=== PATIENT | female | born 1955 | race Caucasian/White ===

== ENCOUNTER 2016-12-06 09:16 | Outpatient (CLI) | payer OTHER ==
[2016-12-06 14:12] LABS: BASOPHILS % (AUTO) 0.6 %; EOSINOPHILS # (AUTO) 0.4 10^3/uL (0.0-0.7); EOSINOPHILS % (AUTO) 5.8 %; HCT - HEMATOCRIT 38.1 % (37.0-47.0); HGB - HEMOGLOBIN 13.1 g/dL (12.0-16.0); LYMPHOCYTES # (AUTO) 1.8 10^3/uL (1.5-3.5); LYMPHOCYTES % (AUTO) 28.5 %; MEAN CORPUSCULAR HEMOGLOBIN 31.2 pg (27.0-31.0); MEAN CORPUSCULAR HGB CONC 34.3 g/dL (32.0-36.0); MEAN CORPUSCULAR VOLUME 90.9 fL (81.0-99.0); MEAN PLATELET VOLUME 8.6 fL (7.9-10.8); MONOCYTES # (AUTO) 0.4 10^3/uL (0.0-1.0); MONOCYTES % (AUTO) 6.2 %; NEUTROPHILS # (AUTO) 3.7 10^3/uL (1.5-6.6); NEUTROPHILS % (AUTO) 58.9 %; NUCLEATED RED BLOOD CELLS AUTO 0.1 /100WBC; RED CELL DISTRIBUTION WIDTH 13.5 % (12.0-15.0); UNCORRECTED WHITE BLOOD COUNT 6.3 x10^3/uL; WHITE BLOOD COUNT 6.3 x10^3/uL (4.8-10.8)
[2016-12-06 14:36] LABS: ALBUMIN/GLOBULIN RATIO 1.4 (1.0-2.2); BILIRUBIN,TOTAL 0.7 mg/dL (0.2-1.0); BUN - BLOOD UREA NITROGEN 24 mg/dL (6-20); CALCIUM 9.2 mg/dL (8.5-10.3); CARBON DIOXIDE - CO2 28 mmol/L (21-32); CHLORIDE 104 mmol/L (101-111); CHOL/HDL RATIO 4.9 (<4.4); CHOLESTEROL 211 mg/dL; CREATININE 0.8 mg/dL (0.4-1.0); GFR - MDRD 72 (>89); GLUCOSE 134 mg/dL (70-100); HDL CHOLESTEROL 43 mg/dL; LDL/HDL RATIO 2.1 (<4.4); POTASSIUM 3.7 mmol/L (3.5-5.0); SODIUM 140 mmol/L (135-145); TOTAL PROTEIN 6.6 g/dL (6.7-8.2); TRIGLYCERIDES 393 mg/dL; VLDL CHOLESTEROL 79 mg/dL
[2016-12-06 14:40] LABS: HEMOGLOBIN A1C 0.63 g/dL
== END 2016-12-06 09:17 | disposition home or self-care (01) ==
LOC: LAB.WCP 09:16
PROVIDERS: ATTEND Physician Assistant Medical
DX: E11.9 Type 2 diabetes mellitus without complications (principal); J30.9 Allergic rhinitis, unspecified
CPT/HCPCS: 36415; 80050; 80061; 83036

== ENCOUNTER 2017-01-23 10:02 | Outpatient (CLI) | payer OTHER ==
--- NOTE | 2017-01-24 13:24 | Mammography Report ---
DIGITAL SCREENING MAMMOGRAM: 01/23/2017 CLINICAL INDICATION: A 61-year-old for screening. COMPARISON: 09/2014, 05/2013, 08/2011, 06/2010, 06/2008 TECHNIQUE: Routine CC and MLO projections were obtained of the breasts. FINDINGS: The breasts again demonstrate scattered fibroglandular densities bilaterally. Coarse and punctate, typically benign calcifications are present. No suspicious masses, clustered microcalcific ations, or regions of architectural distortion are identified. IMPRESSION: BENIGN FINDINGS. RECOMMENDATION: Routine annual screening unless otherwise clinically indicated. BIRADS CATEGORY 2 - BENIGN FINDINGS. STANDARD QUALIFYING STATEMENTS 1. This examination was reviewed with the aid of Computer-Aided Detection (CAD). 2. A negative or benign imaging report should not delay biopsy if clinically suspicious findings are present. Consider surgical consultation if warranted. More than 5% of cancers are not identified by i maging. 3. Dense breasts may obscure an underlying neoplasm. JOB #: [id number] EXT JOB #:[id number]
== END 2017-01-23 10:03 | disposition home or self-care (01) ==
LOC: DI 10:02
PROVIDERS: ATTEND Physician Assistant Medical
DX: Z12.31 Encounter for screening mammogram for malignant neoplasm of breast (principal)
CPT/HCPCS: 77067

== ENCOUNTER 2017-11-12 08:00 | Outpatient (CLI) | payer OTHER ==
[2017-11-13 13:44] LABS: H. PYLORIS ANTIGEN STL NEGATIVE (Negative)
== END 2017-11-12 23:59 | disposition home or self-care (01) ==
LOC: LAB.WCP 08:00
PROVIDERS: ATTEND Physician Assistant Medical
DX: R19.7 Diarrhea, unspecified (principal)
CPT/HCPCS: 81599; 83630; 87045; 87046; 87177; 87209; 87329; 87338; 87493

== ENCOUNTER 2017-11-18 08:00 | Outpatient (CLI) | payer OTHER | END 2017-11-18 08:01 | disposition home or self-care (01) | LOC: LAB.WCP 08:00 | PROVIDERS: ATTEND Family Medicine | DX: N39.0 Urinary tract infection, site not specified (principal) | CPT/HCPCS: 87086 ==

== ENCOUNTER 2017-11-26 08:00 | Outpatient (CLI) | payer OTHER | END 2017-11-26 08:01 | disposition home or self-care (01) | LOC: LAB.R 08:00 | PROVIDERS: ATTEND Family Medicine | DX: R19.7 Diarrhea, unspecified (principal) | CPT/HCPCS: 87493 ==

== ENCOUNTER 2018-02-27 13:27 | Outpatient (CLI) | payer MEDICARE, OTHER ==
--- NOTE | 2018-03-02 13:38 | Mammography Report ---
Procedure Date: 02/27/2018 Accession Number: [id number] / [id number] Procedure: MGN - Screening Mammo Dig Bilat CPT Code: FULL RESULT: EXAM: Screening Mammo Dig Bilat DATE: 02/27/2018 1:44 PM CLINICAL HISTORY: 63-year-old female presents for screening mammogram. TECHNIQUE: Bilateral CC and MLO views were obtained. COMPARISON: 01/23/2017, 09/20/2014, 06/09/2013, 08/29/2011. FINDINGS: The breasts demonstrate scattered fibroglandular densities bilaterally. There are typically benign coarse calcifications in the right breast. No suspicious masses, clustered microcalcifications, or regions of architectural distortion are identified. IMPRESSION: Benign findings RECOMMENDATION: Routine annual screening unless otherwise clinically indicated. BIRADS CATEGORY 2: Benign findings STANDARD QUALIFYING STATEMENTS: 1. This examination was reviewed with the aid of Computer-Aided Detection (CAD). 2. A negative or benign imaging report should not delay biopsy if clinically suspicious findings are present. Consider surgical consultation if warrented. More than 5% of cancers are not identified by imaging. 3. Dense breasts may obscure an underlying neoplasm.
== END 2018-02-27 13:28 | disposition home or self-care (01) ==
LOC: DI.N 13:27
PROVIDERS: ATTEND Radiology Diagnostic Radiology
DX: Z12.31 Encounter for screening mammogram for malignant neoplasm of breast (principal)
CPT/HCPCS: 77067

== ENCOUNTER 2018-03-02 10:28 | Outpatient (CLI) | payer MEDICARE, OTHER ==
--- NOTE | 2018-03-02 14:26 | DEXA Report ---
Procedure Date: 03/02/2018 Accession Number: [id number] / [id number] Procedure: DEX - Dexa Spine and/or Hip CPT Code: FULL RESULT: EXAM: Dexa Spine and/or Hip DATE: 03/02/2018 10:52 AM CLINICAL HISTORY: BONE DISEASE TECHNIQUE: Dual energy x-ray absorptiometry (DXA) was performed on a [employer] System. Regions measured are the AP Spine, femoral neck, and if needed forearm. COMPARISON: None. In accordance with the International Society for Clinical Densitometry (ISCD) guidelines, data from previous exams may be reanalyzed using current recommendations and techniques. This is done to allow a more accurate basis for comparison with the current study. FINDINGS: The data for the lumbar spine is as follows: BMD (g/cm/cm) T-SCORE Z-SCORE REGION L1 1.145 0.1 1.0 L2 1.136 -0.5 0.4 L3 1.129 -0.6 0.3 L4 1.137 -0.5 0.4 TOTAL 1.137 -0.4 0.5 NOTE: All evaluable vertebrae are used for classification The data for the hip is as follows: BMD (g/cm/cm) T-SCORE Z-SCORE REGION Neck 0.831 -1.5 -0.5 TOTAL 0.930 -0.6 0.1 NOTE: The femoral neck or total proximal femur, whichever is lowest, is used for classification. IMPRESSION: THE WHO CLASSIFICATION BASED ON THE INTERNATIONAL REFERENCE STANDARD IS OSTEOPENIA. THE FRACTURE RISK IS INCREASED. RECOMMENDATION: Patients with diagnosis of osteoporosis or osteopenia should have regular bone mineral density assessment. For those eligible for Medicare, routine testing is allowed once every 2 years. Testing frequency can be increased for patients who have rapidly progressing disease or for those who are receiving medical therapy to restore bone mass. COMMENT: World Health Organization (WHO) definitions for osteoporosis and osteopenia: NORMAL BMD: T-score at -1.0 or higher, fracture risk is low OSTEOPENIA BMD: T-score between -1.0 and -2.5, fracture risk is increased. OSTEOPOROSIS BMD: T-score at -2.5 or lower, fracture risk is high. National Osteoporosis Foundation recommends: 1. Obtain adequate dietary calcium (at least 1200 mg per day) and vitamin D (400-800 international units per day). 2. Participate, as appropriate, in regular weightbearing and muscle-strengthening exercise. 3. Avoid tobacco use and reduce alcohol and caffeine intake. 4. For more detailed information see the website at www.NOF.org.
== END 2018-03-02 10:29 | disposition home or self-care (01) ==
LOC: DI 10:28
PROVIDERS: ATTEND Physician Assistant Medical
DX: M85.89 Other specified disorders of bone density and structure, multiple sites (principal)
CPT/HCPCS: 77080

== ENCOUNTER 2018-03-12 09:30 | Outpatient (CLI) | payer MEDICARE, OTHER ==
[2018-03-12 12:24] LABS: BASOPHILS # (AUTO) 0.1 10^3/uL (0.0-0.1); EOSINOPHILS # (AUTO) 0.3 10^3/uL (0.0-0.7); EOSINOPHILS % (AUTO) 5.5 %; HGB - HEMOGLOBIN 14.3 g/dL (12.0-16.0); LYMPHOCYTES # (AUTO) 1.7 10^3/uL (1.5-3.5); LYMPHOCYTES % (AUTO) 27.1 %; MEAN CORPUSCULAR HEMOGLOBIN 31.4 pg (27.0-31.0); MEAN CORPUSCULAR VOLUME 92.3 fL (81.0-99.0); MEAN PLATELET VOLUME 8.3 fL (7.9-10.8); MONOCYTES # (AUTO) 0.4 10^3/uL (0.0-1.0); MONOCYTES % (AUTO) 6.1 %; NEUTROPHILS # (AUTO) 3.8 10^3/uL (1.5-6.6); NEUTROPHILS % (AUTO) 60.3 %; PLT - PLATELET COUNT 208 10^3/uL (130-450); RED BLOOD COUNT 4.55 10^6/uL (4.20-5.40); RED CELL DISTRIBUTION WIDTH 13.9 % (12.0-15.0); WHITE BLOOD COUNT 6.3 x10^3/uL (4.8-10.8)
[2018-03-12 12:51] LABS: ALBUMIN 3.8 g/dL (3.2-5.5); ALBUMIN/GLOBULIN RATIO 1.1 (1.0-2.2); ALKALINE PHOSPHATASE 67 IU/L (42-121); ALT ALANINE AMINOTRANSFERASE 41 IU/L (10-60); AST ASPARTATE AMINOTRANSFERASE 46 IU/L (10-42); BILIRUBIN,TOTAL 0.8 mg/dL (0.2-1.0); BUN - BLOOD UREA NITROGEN 22 mg/dL (6-20); CALCIUM 9.8 mg/dL (8.5-10.3); CARBON DIOXIDE - CO2 27 mmol/L (21-32); CHLORIDE 101 mmol/L (101-111); CHOL/HDL RATIO 6.2 (<4.4); CHOLESTEROL 272 mg/dL; GFR - MDRD 56 (>89); GLUCOSE 255 mg/dL (70-100); HDL CHOLESTEROL 44 mg/dL; SODIUM 137 mmol/L (135-145); TOTAL PROTEIN 7.3 g/dL (6.7-8.2)
[2018-03-12 13:18] LABS: LDL CHOLESTEROL,DIRECT 110 mg/dL; LDLD/HDL RATIO 2.5 (<4.4)
[2018-03-12 20:42] LABS: HB2 TOTAL 15.2 g/dL; HEMOGLOBIN A1C 1.39 g/dL; HEMOGLOBIN A1C % 10.5 % (4.6-6.2)
== END 2018-03-12 09:31 | disposition home or self-care (01) ==
LOC: LAB.WCP 09:30
PROVIDERS: ATTEND Physician Assistant Medical
DX: Z00.00 Encounter for general adult medical examination without abnormal findings (principal); E11.9 Type 2 diabetes mellitus without complications
CPT/HCPCS: 36415; 80053; 80061; 82043; 83036; 83721; 84443; 85025

== ENCOUNTER 2018-06-09 08:37 | Outpatient (CLI) | payer MEDICARE, OTHER ==
[2018-06-09 14:47] LABS: ALBUMIN 4.2 g/dL (3.2-5.5); ALBUMIN/GLOBULIN RATIO 1.3 (1.0-2.2); ALKALINE PHOSPHATASE 33 IU/L (42-121); ALT ALANINE AMINOTRANSFERASE 21 IU/L (10-60); AST ASPARTATE AMINOTRANSFERASE 25 IU/L (10-42); BILIRUBIN,TOTAL 0.8 mg/dL (0.2-1.0); BUN - BLOOD UREA NITROGEN 30 mg/dL (6-20); CALCIUM 9.4 mg/dL (8.5-10.3); CARBON DIOXIDE - CO2 28 mmol/L (21-32); CHLORIDE 102 mmol/L (101-111); CHOL/HDL RATIO 3.6 (<4.4); CHOLESTEROL 160 mg/dL; CREATININE 1.2 mg/dL (0.4-1.0); GFR - MDRD 45 (>89); GLUCOSE 143 mg/dL (70-100); HDL CHOLESTEROL 44 mg/dL; LDL CHOLESTEROL,CALCULATED 67 mg/dL; LDL/HDL RATIO 1.5 (<4.4); SODIUM 138 mmol/L (135-145); TOTAL PROTEIN 7.4 g/dL (6.7-8.2); VLDL CHOLESTEROL 49 mg/dL
[2018-06-09 15:15] LABS: HEMOGLOBIN A1C 0.7 g/dL; HEMOGLOBIN A1C % 6.4 % (4.6-6.2)
== END 2018-06-09 23:59 | disposition home or self-care (01) ==
LOC: LAB.WCP 08:37
PROVIDERS: ATTEND Physician Assistant Medical
DX: E11.9 Type 2 diabetes mellitus without complications (principal)
CPT/HCPCS: 36415; 80053; 80061; 83036; 83721

== ENCOUNTER 2018-08-04 13:28 | Outpatient (CLI) | payer MEDICARE, OTHER | END 2018-08-04 13:29 | disposition home or self-care (01) | LOC: SC 13:28 | PROVIDERS: ATTEND Internal Medicine Pulmonary Disease | DX: G47.33 Obstructive sleep apnea (adult) (pediatric) (principal) | CPT/HCPCS: 99203; G0463; 99212 ==

== ENCOUNTER 2018-08-13 08:00 | Outpatient (CLI) | payer MEDICARE, OTHER | END 2018-08-13 23:59 | disposition home or self-care (01) | LOC: LAB.R 08:00 | PROVIDERS: ATTEND Nurse Practitioner | DX: R35.0 Frequency of micturition (principal) | CPT/HCPCS: 87086; 87181 ==

== ENCOUNTER 2018-09-14 07:54 | Outpatient (CLI) | payer MEDICARE, OTHER ==
[2018-09-14 12:50] LABS: ALBUMIN 4.1 g/dL (3.2-5.5); ALBUMIN/GLOBULIN RATIO 1.3 (1.0-2.2); ALKALINE PHOSPHATASE 28 IU/L (42-121); ALT ALANINE AMINOTRANSFERASE 21 IU/L (10-60); AST ASPARTATE AMINOTRANSFERASE 27 IU/L (10-42); BILIRUBIN,TOTAL 0.6 mg/dL (0.2-1.0); BUN - BLOOD UREA NITROGEN 27 mg/dL (6-20); CALCIUM 9.1 mg/dL (8.5-10.3); CARBON DIOXIDE - CO2 27 mmol/L (21-32); CHLORIDE 102 mmol/L (101-111); CHOL/HDL RATIO 3.2 (<4.4); CHOLESTEROL 167 mg/dL; GFR - MDRD 56 (>89); GLUCOSE 121 mg/dL (70-100); HDL CHOLESTEROL 53 mg/dL; LDL CHOLESTEROL,CALCULATED 85 mg/dL; LDL/HDL RATIO 1.6 (<4.4); SODIUM 138 mmol/L (135-145); TOTAL PROTEIN 7.3 g/dL (6.7-8.2); VLDL CHOLESTEROL 29 mg/dL
[2018-09-14 13:28] LABS: HEMOGLOBIN A1C 0.59 g/dL; HEMOGLOBIN A1C % 5.7 % (4.6-6.2)
== END 2018-09-14 07:55 ==
LOC: LAB.WCP 07:54
PROVIDERS: ATTEND Physician Assistant Medical
DX: E11.9 Type 2 diabetes mellitus without complications (principal)
CPT/HCPCS: 36415; 80053; 80061; 83036; 83721

== ENCOUNTER 2018-09-15 10:41 | Outpatient (CLI) | payer MEDICARE, OTHER | END 2018-09-15 10:42 | disposition home or self-care (01) | LOC: SC 10:41 | PROVIDERS: ATTEND Nurse Practitioner Family | DX: G47.33 Obstructive sleep apnea (adult) (pediatric) (principal) | CPT/HCPCS: 99214; G0463; 99212 ==

== ENCOUNTER 2018-12-18 08:00 | Outpatient (CLI) | payer MEDICARE, OTHER ==
[2018-12-18 12:49] LABS: HB2 TOTAL 14.8 g/dL; HEMOGLOBIN A1C 0.62 g/dL
[2018-12-18 12:55] LABS: ALBUMIN/GLOBULIN RATIO 1.3 (1.0-2.2); ALKALINE PHOSPHATASE 55 IU/L (42-121); ALT ALANINE AMINOTRANSFERASE 16 IU/L (10-60); AST ASPARTATE AMINOTRANSFERASE 22 IU/L (10-42); BILIRUBIN,TOTAL 0.6 mg/dL (0.2-1.0); BUN - BLOOD UREA NITROGEN 28 mg/dL (6-20); CALCIUM 9.3 mg/dL (8.5-10.3); CARBON DIOXIDE - CO2 27 mmol/L (21-32); CHLORIDE 105 mmol/L (101-111); CHOL/HDL RATIO 5.3 (<4.4); CHOLESTEROL 227 mg/dL; CREATININE 0.9 mg/dL (0.4-1.0); GFR - MDRD 63 (>89); GLUCOSE 126 mg/dL (70-100); HDL CHOLESTEROL 43 mg/dL; LDL CHOLESTEROL,CALCULATED 127 mg/dL; SODIUM 141 mmol/L (135-145); TOTAL PROTEIN 7.2 g/dL (6.7-8.2); VLDL CHOLESTEROL 57 mg/dL
== END 2018-12-18 23:59 | disposition home or self-care (01) ==
LOC: LAB.WCP 08:00
PROVIDERS: ATTEND Physician Assistant Medical
DX: E11.9 Type 2 diabetes mellitus without complications (principal)
CPT/HCPCS: 36415; 80053; 80061; 83036; 83721

== ENCOUNTER 2019-01-28 13:38 | Outpatient (CLI) | payer MEDICARE, OTHER ==
--- NOTE | 2019-01-29 12:11 | XRAY Report ---
Reason: NECK PAIN,CHRONIC Procedure Date: 01/28/2019 Accession Number: [id number] / [id number] Procedure: XR - Cervical Spine Complete CPT Code: FULL RESULT: EXAM: CERVICAL SPINE RADIOGRAPHY EXAM DATE: 01/28/2019 02:18 PM HISTORY: COMMENTS: CHRONIC NECK PAIN PRIORS: NONE. TECHNIQUE: AP, bilateral obliques, lateral and open mouth odontoid 5 view exam plus swimmer's view COMPARISON: None. FINDINGS: Normal alignment. Mild sclerotic appearance at the right lateral mass of C2 may be related to some mild degenerative arthritis at the superior facet. Overlapping bony structure might contribute to this appearance as well. Associated linear lucency is probably related to bony ridge. There is evidence of mild to moderate progressive spondylosis from C4-C7 with increasing osteophyte formation at the lower cervical levels, most prominent at C6-C7. Posterior facet osteoarthritis also noted at these levels increasing in degree toward the caudal aspect. Mild neural foraminal narrowing noted at C3-C4 and C5-C6 on the left and C6-C7 on the right secondary to Luschka joint hypertrophy. Unremarkable prevertebral soft tissues. IMPRESSION: Multilevel spondylosis, greatest at the lower cervical levels. See above description. [facility]
== END 2019-01-28 13:39 | disposition home or self-care (01) ==
LOC: DI 13:38
PROVIDERS: ATTEND Physician Assistant Medical
DX: M47.812 Spondylosis without myelopathy or radiculopathy, cervical region (principal)
CPT/HCPCS: 72050

== ENCOUNTER 2019-04-22 07:49 | Outpatient (CLI) | payer MEDICARE, OTHER ==
[2019-04-22 13:11] LABS: ALBUMIN/GLOBULIN RATIO 1.3 (1.0-2.2); ALKALINE PHOSPHATASE 51 IU/L (42-121); ALT ALANINE AMINOTRANSFERASE 16 IU/L (10-60); AST ASPARTATE AMINOTRANSFERASE 20 IU/L (10-42); BILIRUBIN,TOTAL 0.6 mg/dL (0.2-1.0); BUN - BLOOD UREA NITROGEN 25 mg/dL (6-20); CALCIUM 9.2 mg/dL (8.5-10.3); CARBON DIOXIDE - CO2 30 mmol/L (21-32); CHLORIDE 100 mmol/L (101-111); CHOL/HDL RATIO 5.4 (<4.4); CHOLESTEROL 236 mg/dL; CREATININE 1.1 mg/dL (0.4-1.0); GFR - MDRD 50 (>89); GLUCOSE 142 mg/dL (70-100); HDL CHOLESTEROL 44 mg/dL; LDL CHOLESTEROL,CALCULATED 117 mg/dL; LDL/HDL RATIO 2.7 (<4.4); SODIUM 141 mmol/L (135-145); TOTAL PROTEIN 7.1 g/dL (6.7-8.2); VLDL CHOLESTEROL 75 mg/dL
[2019-04-22 13:57] LABS: HB2 TOTAL 14.5 g/dL; HEMOGLOBIN A1C 0.64 g/dL; HEMOGLOBIN A1C % 6.2 % (4.6-6.2)
== END 2019-04-22 07:50 | disposition home or self-care (01) ==
LOC: LAB.WCP 07:49
PROVIDERS: ATTEND Physician Assistant Medical
DX: E11.9 Type 2 diabetes mellitus without complications (principal)
CPT/HCPCS: 36415; 80053; 80061; 83036; 83721

== ENCOUNTER 2020-02-23 11:03 | Outpatient (CLI) | payer MEDICARE, OTHER ==
[2020-02-23 11:37] LABS: ALBUMIN 4.4 g/dL (3.2-5.5); ALBUMIN/GLOBULIN RATIO 1.4 (1.0-2.2); ALKALINE PHOSPHATASE 35 IU/L (42-121); ALT ALANINE AMINOTRANSFERASE 21 IU/L (10-60); AST ASPARTATE AMINOTRANSFERASE 21 IU/L (10-42); BILIRUBIN,TOTAL 0.5 mg/dL (0.2-1.0); BUN - BLOOD UREA NITROGEN 25 mg/dL (6-20); CALCIUM 9.5 mg/dL (8.5-10.3); CARBON DIOXIDE - CO2 28 mmol/L (21-32); CHLORIDE 102 mmol/L (101-111); CHOL/HDL RATIO 3.9 (<4.4); CHOLESTEROL 193 mg/dL; CREATININE 1.1 mg/dL (0.4-1.0); GLUCOSE 144 mg/dL (70-100); HDL CHOLESTEROL 49 mg/dL; LDL CHOLESTEROL,CALCULATED 110 mg/dL; LDL/HDL RATIO 2.2 (<4.4); LIPASE 35 U/L (22-51); SODIUM 140 mmol/L (135-145); TOTAL PROTEIN 7.6 g/dL (6.7-8.2); VLDL CHOLESTEROL 34 mg/dL
[2020-02-23 11:43] LABS: HEMOGLOBIN A1C 0.74 g/dL; HEMOGLOBIN A1C % 6.7 % (4.6-6.2)
[2020-02-23] MEDS ORDERED: IOVERSOL 320 50 ML VIAL ONE (15:08)
[2020-02-23] MEDS ORDERED: IOVERSOL 320 100 ML VIAL IVP ONE ×2 (15:08→16:58)
--- NOTE | 2020-02-23 16:20 | CT Report ---
PROCEDURE: Abdomen/Pelvis W INDICATIONS: ABDOMINAL PAIN CONTRAST: IV CONTRAST: Optiray 320 ml: 100 PO CONTRAST: Optiray 320 ml50 TECHNIQUE: After the administration of oral and intravenous contrast, 5 mm thick sections acquired from the diap hragms to the symphysis. 5 mm thick coronal and sagittal reformats were acquired. For radiation dos e reduction, the following was used: automated exposure control, adjustment of mA and/or kV accordin g to patient size. COMPARISON: None. FINDINGS: Image quality: Excellent. ABDOMEN: Lung bases: Lung bases are clear. Heart size is normal. Solid organs: Liver and spleen are normal in size and enhancement. Gallbladder is surgically absent Biliary system is non dilated. Pancreas enhances normally. No adrenal nodules. Kidneys demonstra te normal size and enhancement, without hydronephrosis. Peritoneum and bowel: Bowel loops demonstrate normal wall thickness and caliber. No free fluid or a ir. Nodes and vessels: No retroperitoneal or mesenteric adenopathy by size criteria. Aorta and inferior vena cava are normal in size. Miscellaneous: No ventral hernias. PELVIS: Genitourinary: Bladder wall thickness is normal. Miscellaneous: No inguinal hernias or adenopathy. Remote hysterectomy with anterior and posterior p elvic floor relaxation with cystocele and rectocele incidentally noted. Bones: No suspicious bony lesions. No vertebral body compression fractures. IMPRESSION: 1. No evidence of acute abdominal process. 2. Remote hysterectomy. 3. Incidental note is made of pelvic relaxation with resultant cystocele and rectocele. Reviewed by: Dionisio Tobias MD on 02/23/2020 4:19 PM PDT Approved by: Dionisio Tobias MD on 02/23/2020 4:19 PM PDT Station ID: [id number]
[2020-02-23] MEDS ORDERED: IOVERSOL 320 50 ML VIAL PO ONE (16:58)
== END 2020-02-23 11:04 | disposition home or self-care (01) ==
LOC: LAB 11:03 → DI 11:04
PROVIDERS: ATTEND Physician Assistant Medical
DX: R10.30 Lower abdominal pain, unspecified (principal); E11.9 Type 2 diabetes mellitus without complications; Z90.710 Acquired absence of both cervix and uterus
CPT/HCPCS: 36415; 74177; 80053; 80061; 83036; 83690; Q9967; 83721

== ENCOUNTER 2020-05-01 06:18 | Day surgery (SDC) | payer MEDICARE, OTHER ==
[2020-05-01 06:59] VITALS: BP 160/82
[2020-05-01] MEDS ORDERED: LACTATED RINGERS 1,000 ML IV ONE (07:06)
[2020-05-01] MEDS ORDERED: MIDAZOLAM 2 MG/2 ML VIAL IVP ONE (07:41)
[2020-05-01] MEDS ORDERED: fentaNYL 250 MCG/5 ML VIAL IVP ONE (07:41)
== END 2020-05-01 06:19 | disposition home or self-care (01) ==
LOC: SDS 06:18
PROVIDERS: ATTEND Surgery
PROC: 0DBN8ZZ Excision of Sigmoid Colon, Via Natural or Artificial Opening Endoscopic (ICD-10-PCS; 2020-05-01)
PROC: 0DBM8ZZ Excision of Descending Colon, Via Natural or Artificial Opening Endoscopic (ICD-10-PCS; principal; 2020-05-01 07:30)
DX: Z12.11 Encounter for screening for malignant neoplasm of colon (principal); D12.4 Benign neoplasm of descending colon; D12.5 Benign neoplasm of sigmoid colon; K57.30 Diverticulosis of large intestine without perforation or abscess without bleeding; I10 Essential (primary) hypertension; G47.30 Sleep apnea, unspecified; E11.9 Type 2 diabetes mellitus without complications; Z79.84 Long term (current) use of oral hypoglycemic drugs; Z80.0 Family history of malignant neoplasm of digestive organs
CPT/HCPCS: 45380; J3010; J7120

== ENCOUNTER 2020-06-05 07:53 | Outpatient (CLI) | payer MEDICARE, OTHER ==
[2020-06-05 13:01] LABS: ALBUMIN 3.8 g/dL (3.2-5.5); ALBUMIN/GLOBULIN RATIO 1.1 (1.0-2.2); ALKALINE PHOSPHATASE 70 IU/L (42-121); ALT ALANINE AMINOTRANSFERASE 17 IU/L (10-60); AST ASPARTATE AMINOTRANSFERASE 15 IU/L (10-42); BILIRUBIN,TOTAL 0.9 mg/dL (0.2-1.0); BUN - BLOOD UREA NITROGEN 26 mg/dL (6-20); CALCIUM 9.2 mg/dL (8.5-10.3); CARBON DIOXIDE - CO2 27 mmol/L (21-32); CHLORIDE 101 mmol/L (101-111); CHOL/HDL RATIO 4.8 (<4.4); CHOLESTEROL 255 mg/dL; CREATININE 0.9 mg/dL (0.4-1.0); GLUCOSE 155 mg/dL (70-100); HDL CHOLESTEROL 53 mg/dL; LDL CHOLESTEROL,CALCULATED 142 mg/dL; LDL/HDL RATIO 2.7 (<4.4); SODIUM 142 mmol/L (135-145); TOTAL PROTEIN 7.3 g/dL (6.7-8.2); VLDL CHOLESTEROL 60 mg/dL
[2020-06-05 13:18] LABS: HEMOGLOBIN A1c% 7.1 % (4.27-6.07)
== END 2020-06-05 23:59 | disposition home or self-care (01) ==
LOC: LAB.WCP 07:53
PROVIDERS: ATTEND Physician Assistant Medical
DX: E11.9 Type 2 diabetes mellitus without complications (principal)
CPT/HCPCS: 36415; 80053; 80061; 83036; 83721

== ENCOUNTER 2020-06-30 10:50 | Outpatient (CLI) | payer MEDICARE, OTHER ==
--- NOTE | 2020-07-03 10:20 | Mammography Report ---
BILATERAL DIGITAL SCREENING MAMMOGRAM 3D/2D: 06/30/2020 CLINICAL: Routine screening. Comparison is made to exams dated: 02/27/2018 mammogram, 01/23/2017 mammogram - [facility], 09/20/2014 mammogram, 06/11/2013 mammogram, 08/29/2011 mammogram, and 09/08/2009 mammogram - [facility]. There are scattered fibroglandular elements in both breasts. No significant masses, calcifications, or other findings are seen in either breast. There has been no significant interval change. IMPRESSION: NEGATIVE There is no mammographic evidence of malignancy. A 1 year screening mammogram is recommended. This exam was interpreted at Station ID: [id number]. NOTE: For mammograms, a report in lay terms will be sent to the patient. Approximately 15% of breast malignancies will not be visualized mammographically. In the management of a palpable breast mass, a negative mammogram must not discourage biopsy of a clinically suspicious lesion. Electronically Signed By: Jayme higuera/[email or web address]:06/30/2020 12:07:44 ACR BI-RADS Category 1: Negative 3341F PARENCHYMAL PATTERN: (A) - The breast(s) demonstrate(s) scattered fibroglandular densities. BI-RADS CATEGORY: (1) - 1 RECOMMENDATION: (ANNUAL) - Recommend routine annual screening mammography. [id number] 1 year screening LATERALITY: (B)
== END 2020-06-30 10:51 | disposition home or self-care (01) ==
LOC: DI.N 10:50
DX: Z12.31 Encounter for screening mammogram for malignant neoplasm of breast (principal)

== ENCOUNTER 2020-09-01 08:00 | Outpatient (CLI) | payer MEDICARE, OTHER ==
[2020-09-01 12:26] LABS: ALBUMIN 4.1 g/dL (3.2-5.5); ALBUMIN/GLOBULIN RATIO 1.4 (1.0-2.2); ALKALINE PHOSPHATASE 54 IU/L (42-121); ALT ALANINE AMINOTRANSFERASE 19 IU/L (10-60); AST ASPARTATE AMINOTRANSFERASE 19 IU/L (10-42); BILIRUBIN,TOTAL 0.7 mg/dL (0.2-1.0); BUN - BLOOD UREA NITROGEN 26 mg/dL (6-20); CALCIUM 9.2 mg/dL (8.5-10.3); CARBON DIOXIDE - CO2 27 mmol/L (21-32); CHLORIDE 100 mmol/L (101-111); CHOL/HDL RATIO 2.4 (<4.4); CHOLESTEROL 106 mg/dL; CREATININE 0.9 mg/dL (0.4-1.0); GLUCOSE 147 mg/dL (70-100); HDL CHOLESTEROL 44 mg/dL; LDL CHOLESTEROL,CALCULATED 19 mg/dL; LDL/HDL RATIO 0.4 (<4.4); VLDL CHOLESTEROL 43 mg/dL
[2020-09-01 12:29] LABS: HEMOGLOBIN A1c% 7.8 % (4.27-6.07)
== END 2020-09-01 23:59 | disposition home or self-care (01) ==
LOC: LAB.WCP 08:00
PROVIDERS: ATTEND Physician Assistant Medical
DX: E11.9 Type 2 diabetes mellitus without complications (principal)
CPT/HCPCS: 36415; 80053; 80061; 83036; 83721

== ENCOUNTER 2020-09-21 09:27 | Outpatient (CLI) | payer MEDICARE, OTHER ==
--- NOTE | 2020-09-21 09:59 | SLEEP CARE CONSULTATION ---
Information from patient questionnaire entered by Sofia Mario. I have reviewed and concur with the information entered by Sofia Mario. This document represents the service I personally performed and the decisions made by , Daniela Rainey ARNP. History of Present Illness Service Date and Time: 09/21/2020926 Previous diagnosis: Mild, Obstructive Sleep Apnea-Hypopnea Syndrome AHI: 12.5 (in 2009) Reason for follow up: annual (last seen 08/2019) Equipment type: CPAP Equipment obtained from: [facility] (getting supplies as needed) Mask style: Nasal pillows Backup mask available: Yes (old mask) Last cushion change: few days ago; 1st of every month Prior sleep studies: Yes Year and Where: 2009 - [facility] Type of Sleep Study: Polysomnography HPI additional information: MANDI CABRERA was diagnosed to have mild, AHI 12.5, obstructive sleep apnea- hypopnea syndrome and returned today for CPAP therapy annual follow-up. CPAP Compliance Data - Data Reviewed with Patient Average duration of nightly device use: 8 hr 44 min Compliance rate %: 97.8 (180 days) Current pressure setting (cmH2O): 6-8 Humidity settin Heated hose settin Average residual AHI: 0.5 Average large leak: 0 Subjective Patient concerns: reports: other (travel CPAP - Dry mouth and pressure). denies: aerophagia, mask discomfort, air blowing in eyes, mask leak noise, condensation in mask/hose, nasal congestion, dry mouth, nose, throat, epistaxis Observed to snore while using device: No Current pressure setting perceived as: comfortable On therapy, patient: reports: sleeping better, awakening more refreshed, being more awake and alert during the day, more rested overall. denies: drowsiness while driving Initial [place] Sleepiness Scale score: 8 (in 2009) Current [place] Sleepiness Scale score: 5 Allergies and Home Medications Drug allergies reviewed: Yes (Penicillin) Home medication list reviewed: Yes (rosuvastatin) Review of Systems Review of systems same as previous: No (neck, shoulder, arm pain - cervical disc (pt of [facility] surgeons)) Physical Exam Heart Rate: 67 O2 Saturation: 99 Height: 5 ft 6 in Weight: 176 lb Body Mass Index: 28.4 BMI Classification: Overweight Impression and Plan 1. Obstructive Sleep Apnea-Hypopnea Syndrome, mild, with good treatment compliance and excellent apnea control. On CPAP therapy, the patient has better sleep quality and is more rested overall. She states that she get some mouth dryness when using her travel machine. She feels the pressure is not as comfortable, too low, on the travel machine as well. She states her machine is not that old. I advised her to take to DME for service to see if working appropriately or needs repair. She should check if it is still covered by warranty. She voiced understanding. Patient's apnea severity and rationale for treatment to reduce apnea, improve sleep quality and reduce cardiovascular and cerebrovascular events was reviewed. I also reviewed the benefit of consistent device use of CPAP for hypertension, diabetes, and depression. * Continue auto CPAP pressure at 6-8 cmH2O * Notify me if snoring with mask or feeling that the pressure is too much or too little * Patient to look into servicing her travel machine to see if it needs repair. * Attempt to lose weight * Call this office if any problems using CPAP * Return for follow up in 1 year, or sooner if concerns arise Counseling Topics: Spare mask, Weight loss health impact Visit Type: In Office Time Spent with Patient (minutes): 18 Provider Statement: I spent 100% of the Face to Face Visit with the patient with greater than 50% spent counseling the patient and coordination of care.
== END 2020-09-21 09:28 | disposition home or self-care (01) ==
LOC: SC 09:27
PROVIDERS: ATTEND Nurse Practitioner Family
DX: G47.33 Obstructive sleep apnea (adult) (pediatric) (principal); E66.3 Overweight; Z68.28 Body mass index [BMI] 28.0-28.9, adult
CPT/HCPCS: 99212; G0463

== ENCOUNTER 2020-12-11 08:00 | Outpatient (CLI) | payer MEDICARE, OTHER ==
[2020-12-11 12:18] LABS: BUN - BLOOD UREA NITROGEN 23 mg/dL (6-20); CARBON DIOXIDE - CO2 29 mmol/L (21-32); CHLORIDE 102 mmol/L (101-111); CHOLESTEROL 129 mg/dL; CREATININE 0.9 mg/dL (0.4-1.0); GFR - MDRD 62 (>89); GLUCOSE 152 mg/dL (70-100); HDL CHOLESTEROL 43 mg/dL; POTASSIUM 3.8 mmol/L (3.5-5.0); SODIUM 139 mmol/L (135-145); TRIGLYCERIDES 421 mg/dL
[2020-12-11 12:29] LABS: ESTIMATED AVERAGE GLUCOSE 154 mg/dL (70-100)
[2020-12-11 12:57] LABS: LDL CHOLESTEROL,DIRECT 44 mg/dL
== END 2020-12-11 23:59 | disposition home or self-care (01) ==
LOC: LAB.WCP 08:00
PROVIDERS: ATTEND Physician Assistant Medical
DX: E11.9 Type 2 diabetes mellitus without complications (principal)
CPT/HCPCS: 36415; 80048; 80061; 83036; 83721

== ENCOUNTER 2021-05-01 08:00 | Outpatient (CLI) | payer MEDICARE, OTHER ==
[2021-05-01 12:29] LABS: ESTIMATED AVERAGE GLUCOSE 180 mg/dL (70-100); HEMOGLOBIN A1c% 7.9 % (4.27-6.07)
[2021-05-01 13:16] LABS: BUN - BLOOD UREA NITROGEN 26 mg/dL (6-20); CHOL/HDL RATIO 3.1 (<4.4); CHOLESTEROL 126 mg/dL; CREATININE 1.2 mg/dL (0.4-1.0); GFR - MDRD 45 (>89); HDL CHOLESTEROL 41 mg/dL; LDL CHOLESTEROL,CALCULATED 27 mg/dL; LDL/HDL RATIO 0.7 (<4.4); TRIGLYCERIDES 289 mg/dL; VLDL CHOLESTEROL 58 mg/dL
[2021-05-01 13:18] LABS: CALCIUM 9.3 mg/dL (8.5-10.3); CARBON DIOXIDE - CO2 26 mmol/L (21-32); CHLORIDE 102 mmol/L (101-111); GLUCOSE 178 mg/dL (70-100); POTASSIUM 3.5 mmol/L (3.5-5.0); SODIUM 141 mmol/L (135-145)
== END 2021-05-01 23:59 | disposition home or self-care (01) ==
LOC: LAB.WCP 08:00
PROVIDERS: ATTEND Physician Assistant Medical
DX: E11.9 Type 2 diabetes mellitus without complications (principal)
CPT/HCPCS: 36415; 80048; 80061; 83036; 83721

== ENCOUNTER 2021-08-20 08:05 | Outpatient (CLI) | payer MEDICARE, OTHER ==
[2021-08-20 12:07] LABS: ALBUMIN/GLOBULIN RATIO 1.3 (1.0-2.2); ALKALINE PHOSPHATASE 68 IU/L (42-121); ALT ALANINE AMINOTRANSFERASE 31 IU/L (10-60); AST ASPARTATE AMINOTRANSFERASE 34 IU/L (10-42); BILIRUBIN,TOTAL 0.8 mg/dL (0.2-1.0); BUN - BLOOD UREA NITROGEN 25 mg/dL (6-20); CALCIUM 9.3 mg/dL (8.5-10.3); CARBON DIOXIDE - CO2 30 mmol/L (21-32); CHLORIDE 99 mmol/L (101-111); CHOL/HDL RATIO 3.2 (<4.4); CHOLESTEROL 152 mg/dL; CREATININE 1.3 mg/dL (0.4-1.0); GFR - MDRD 41 (>89); GLUCOSE 187 mg/dL (70-100); HDL CHOLESTEROL 47 mg/dL; LDL CHOLESTEROL,CALCULATED 51 mg/dL; LDL/HDL RATIO 1.1 (<4.4); POTASSIUM 3.4 mmol/L (3.5-5.0); SODIUM 141 mmol/L (135-145); TOTAL PROTEIN 7.2 g/dL (6.7-8.2); TRIGLYCERIDES 272 mg/dL; VLDL CHOLESTEROL 54 mg/dL
[2021-08-20 12:13] LABS: ESTIMATED AVERAGE GLUCOSE 249 mg/dL (70-100); HEMOGLOBIN A1c% 10.3 % (4.27-6.07)
[2021-08-20 12:16] LABS: CREATININE,URINE 119.9 mg/dL; MICROALBUM/CREATININE RATIO,UR 5.8 ug/mg (<30.0); MICROALBUMIN,URINE 0.7 mg/dL (0-300.0)
== END 2021-08-20 23:59 | disposition home or self-care (01) ==
LOC: LAB.WCP 08:05
PROVIDERS: ATTEND Physician Assistant Medical
DX: E11.9 Type 2 diabetes mellitus without complications (principal)
CPT/HCPCS: 36415; 80053; 80061; 82043; 82570; 83036; 83721

== ENCOUNTER 2021-09-15 10:17 | Outpatient (CLI) | payer MEDICARE, OTHER | END 2021-09-15 23:59 | disposition home or self-care (01) | LOC: LAB.N 10:17 | PROVIDERS: ATTEND Physician Assistant | DX: R09.81 Nasal congestion (principal); Z20.822 Contact with and (suspected) exposure to COVID-19 ==

== ENCOUNTER 2021-09-15 10:32 | Outpatient (CLI) | payer MEDICARE, OTHER ==
--- NOTE | 2021-09-15 11:25 | XRAY Report ---
PROCEDURE: Chest 2 View X-Ray INDICATIONS: ACUTE COUGH TECHNIQUE: 2 view(s) of the chest. COMPARISON: Correlation is made with overlapping portions of the abdomen and pelvis CT, 02/23/2020 FINDINGS: Surgical changes and devices: A cholecystectomy clip is faintly seen on the lateral image. Lungs and pleura: No pleural effusions or pneumothorax. Lungs are clear. Mediastinum: Mediastinal contours are normal. Heart size is normal. Bones and chest wall: No suspicious bony abnormalities. Age-appropriate degenerative changes are se en. Soft tissues appear unremarkable. IMPRESSION: Clear lungs, without focal infiltrates. Reviewed by: Gordon Rebolledo MD on 09/15/2021 10:24 AM [facility] Approved by: Gordon Rebolledo MD on 09/15/2021 10:24 AM [facility] Station ID: [id number]
== END 2021-09-15 23:59 | disposition home or self-care (01) ==
LOC: DI.N 10:32
PROVIDERS: ATTEND Physician Assistant
DX: R05.1 Acute cough (principal); R09.81 Nasal congestion; Z20.822 Contact with and (suspected) exposure to COVID-19
CPT/HCPCS: 71046; U0004

== ENCOUNTER 2021-09-28 14:23 | Outpatient (CLI) | payer MEDICARE, OTHER ==
[2021-09-28 17:50] LABS: BASOPHILS # (AUTO) 0.1 10^3/uL (0.0-0.1); BASOPHILS % (AUTO) 0.6 %; EOSINOPHILS # (AUTO) 0.3 10^3/uL (0.0-0.7); EOSINOPHILS % (AUTO) 3.4 %; HGB - HEMOGLOBIN 14.5 g/dL (12.0-16.0); LYMPHOCYTES # (AUTO) 2.2 10^3/uL (1.5-3.5); LYMPHOCYTES % (AUTO) 25.2 %; MEAN CORPUSCULAR HEMOGLOBIN 30.8 pg (27.0-31.0); MEAN CORPUSCULAR HGB CONC 33.7 g/dL (32.0-36.0); MEAN CORPUSCULAR VOLUME 91.3 fL (81.0-99.0); MONOCYTES # (AUTO) 0.6 10^3/uL (0.0-1.0); MONOCYTES % (AUTO) 6.3 %; NEUTROPHILS # (AUTO) 5.6 10^3/uL (1.5-6.6); NEUTROPHILS % (AUTO) 64.2 %; PLT - PLATELET COUNT 254 10^3/uL (130-450); RED BLOOD COUNT 4.71 10^6/uL (4.20-5.40); RED CELL DISTRIBUTION WIDTH 13.2 % (12.0-15.0); WHITE BLOOD COUNT 8.8 x10^3/uL (4.8-10.8)
[2021-09-28 18:15] LABS: ALBUMIN 3.8 g/dL (3.2-5.5); ALBUMIN/GLOBULIN RATIO 1.2 (1.0-2.2); BILIRUBIN,TOTAL 0.6 mg/dL (0.2-1.0); CALCIUM 9.4 mg/dL (8.5-10.3); CREATININE 0.9 mg/dL (0.4-1.0); POTASSIUM 3.9 mmol/L (3.5-5.0)
== END 2021-09-28 14:24 | disposition home or self-care (01) ==
LOC: LAB.N 14:23
PROVIDERS: ATTEND Physician Assistant Medical
DX: R60.9 Edema, unspecified (principal)
CPT/HCPCS: 36415; 80053; 83880; 85025

== ENCOUNTER 2021-09-28 14:28 | Outpatient (CLI) | payer MEDICARE, OTHER ==
--- NOTE | 2021-09-28 14:52 | XRAY Report ---
PROCEDURE: Chest 2 View X-Ray INDICATIONS: ACUTE COUGH TECHNIQUE: 2 view(s) of the chest. COMPARISON: September 15, 2021 FINDINGS: SUPPORT DEVICES: None. LUNGS/PLEURA: No focal consolidation, pleural effusion or space-occupying pneumothorax. MEDIASTINUM: The cardiomediastinal silhouette is within normal limits. BONES/SOFT TISSUES: No acute abnormality. IMPRESSION: 1.No acute cardiopulmonary abnormality. Reviewed by: Navin Hernandez MD on 09/28/2021 2:50 PM PST Approved by: Navin Hernandez MD on 09/28/2021 2:50 PM [facility] Station ID: [id number]
== END 2021-09-28 14:29 | disposition home or self-care (01) ==
LOC: DI.N 14:28
PROVIDERS: ATTEND Physician Assistant Medical
DX: R05.1 Acute cough (principal); R60.9 Edema, unspecified
CPT/HCPCS: 36415; 80053; 83880; 85025

== ENCOUNTER 2021-10-31 02:02 | Emergency (ER) | payer MEDICARE, OTHER ==
--- NOTE | 2021-10-31 02:55 | ED Physician Documentation ---
PD HPI HEADACHE - Stated complaint Stated Complaint: HEADACHE/NAUSEA - Chief complaint Chief Complaint: Neuro - History obtained from History obtained from: Patient, Family - History of Present Illness Timing - onset: How many weeks ago (2) Timing - onset during: Rest Timing - duration: Weeks (2) Timing - details: Gradual onset, Still present Location: Front, Right, Left Quality: Throbbing Associated symptoms: Nausea, Vomiting, Other (photophobia). No: Fever, Stiff neck Improved by: Rest, Dark room, Quiet Worsened by: Light, Noise, Moving Contributing factors: Hypertension. No: Anticoagulated, Recent illness Similar symptoms before: Diagnosis (migraine) Recently seen: Not recently seen - Additional information Additional information: 66-year-old female with history of type 2 diabetes and migraines has developed a headache about 2 weeks ago and this did not respond to the patient's usual migraine medication. She has a severe headache nausea vomiting photophobia and she is noted to be hypertensive. She has recently started on a new medication for her diabetes and she is getting injections of Trulicity every 2 weeks for the past 2 months. The patient feels that she has had some difficulty with headaches since beginning this medicine. Review of Systems Constitutional: reports: Myalgias. denies: Fever, Chills Ears: denies: Ear pain Nose: denies: Rhinorrhea / runny nose, Congestion Throat: denies: Sore throat Cardiac: denies: Chest pain / pressure, Palpitations Respiratory: denies: Dyspnea, Cough GI: reports: Nausea, Vomiting. denies: Abdominal Pain, Constipation, Diarrhea : reports: Frequency. denies: Dysuria Skin: denies: Rash Musculoskeletal: reports: Neck pain. denies: Back pain, Extremity pain Neurologic: reports: Headache. denies: Generalized weakness, Focal weakness, Numbness, Confused, Altered mental status, Head injury, LOC PD PAST MEDICAL HISTORY - Past Medical History Past Medical History: Yes Cardiovascular: Hypertension, High cholesterol, Deep vein thrombosis, Arrhythmia Respiratory: None Neuro: Migraines Endocrine/Autoimmune: Type 2 diabetes GI: Chronic diarrhea : None HEENT: Chronic vision loss Psych: Depression Musculoskeletal: Chronic back pain - Past Surgical History Past Surgical History: Yes General: Cholecystectomy, Colonoscopy Ortho: Arthroscopic surgery /YARD CONDUCTOR: Hysterectomy - Present Medications Home Medications: Ambulatory Orders Medication Instructions Recorded Confirmed Albuterol Sulfate [Proair Hfa 2 puffs IH Q4HR PRN 04/13/22 04/13/22 Inhaler] Cyclobenzaprine [Flexeril] 10 mg PO DAILY PRN 10/31/21 10/31/21 Dulaglutide [Trulicity] 0.5 ml IM 10/31/21 Losartan [Cozaar] 50 mg PO DAILY 10/31/21 10/31/21 Rosuvastatin Calcium [Crestor] 10 mg PO DAILY 10/31/21 10/31/21 - Allergies Allergies/Adverse Reactions: Allergies Allergy/AdvReac Type Severity Reaction Status Date / Time Penicillins Allergy Severe Rash Verified 10/31/21 02:13 artificial sweeteners AdvReac Intermediate Headache Uncoded 10/31/21 02:13 - Social History Does the pt smoke?: No Smoking Status: Never smoker Does the pt drink ETOH?: No Does the pt have substance abuse?: No - Immunizations Immunizations are current?: Yes - POLST Patient has POLST: No PD ED PE NORMAL - Vitals Vital signs reviewed: Yes (hypertensive marked) - General General: Alert and oriented X 3, Well developed/nourished, Other (Patient appears photophobic and is in a darkened room. She is interactive and does not have evidence of speech latency or delay in execution of motor commands.) - HEENT HEENT: Atraumatic, PERRL, EOMI - Neck Neck: Supple, no meningeal sign, No bony TTP - Cardiac Cardiac: RRR, No murmur - Respiratory Respiratory: No respiratory distress, Clear bilaterally - Abdomen Abdomen: Normal bowel sounds, Soft, Non tender, Non distended, No organomegaly - Back Back: No CVA TTP, No spinal TTP - Derm Derm: Normal color, Warm and dry, No rash - Extremities Extremities: No deformity, No edema - Neuro Neuro: Alert and oriented X 3, spud driller 2-12 intact, No motor deficit, No sensory deficit, Normal speech Eye Opening: Spontaneous Motor: Obeys Commands Verbal: Oriented GCS Score: 15 - Psych Psych: Normal mood, Normal affect Results - Vitals Vitals: Vital Signs - 24 hr 10/31/21 10/31/21 10/31/21 02:09 03:00 04:11 Temperature 36.8 C Heart Rate 91 77 67 Respiratory 18 18 17 Rate Blood Pressure 220/97 H 234/89 H 229/97 H O2 Saturation 98 100 98 10/31/21 10/31/21 10/31/21 04:46 05:04 05:22 Temperature Heart Rate 69 68 62 Respiratory 15 16 16 Rate Blood Pressure 187/78 H 191/86 H O2 Saturation 96 99 97 Oxygen O2 Source Room air - Labs Labs: Laboratory Tests 10/31/21 10/31/21 10/31/21 03:05 03:05 03:10 WBC 7.2 RBC 4.80 Hgb 14.8 Hct 43.1 MCV 89.8 MCH 30.8 MCHC 34.3 RDW 12.7 Plt Count 193 MPV 9.3 Neut # (Auto) 4.7 Lymph # (Auto) 1.6 Page # (Auto) 0.5 Eos # (Auto) 0.3 Baso # (Auto) 0.0 Absolute Nucleated RBC 0.00 Nucleated RBC % 0.0 Sodium 139 Potassium 3.6 Chloride 101 Carbon Dioxide 27 Anion Gap 11.0 BUN 22 H Creatinine 0.9 Estimated GFR (MDRD) 62 L Glucose 267 H Calcium 9.2 Total Bilirubin 0.7 AST 24 ALT 24 Alkaline Phosphatase 78 Total Protein 7.1 Albumin 4.0 Globulin 3.1 Albumin/Globulin Ratio 1.3 Lipase 33 Urine Color YELLOW Urine Clarity CLEAR Urine pH 7.0 Ur Specific [place] 1.015 Urine Protein NEGATIVE Urine Glucose (UA) 500 H Urine Ketones NEGATIVE Urine Occult Blood NEGATIVE Urine Nitrite NEGATIVE Urine Bilirubin NEGATIVE Urine Urobilinogen 0.2 (NORMAL) Ur Leukocyte Esterase NEGATIVE Ur Microscopic Review NOT INDICATED Urine Culture Comments NOT INDICATED - Rads (name of study) CT head w/o Radiology: Prelim report reviewed (Impression: 1. Tiny left paracentral focus of hyperattenuation along the falx is likely calcification. If there is clinic al concern for acute hemorrhage. Short interval follow-up recommended. No finding of territorial infarct.), EMP read indepedently, See rad report CT head Radiology: Prelim report reviewed (Impression: 1. No acute intracranial infarct or hemorrhage.), EMP read indepedently, See rad report Procedures - IVC sono (time) 0340 Bedside IVC sono: IVC measures (cm) (1.09), Dehydration (Estimated 1 to 2 L deficit) PD MEDICAL DECISION MAKING - ED course Complexity details: reviewed old records, reviewed results, re-evaluated patient, considered differential, d/w patient, d/w family ED course: 66-year-old female with a history of migraine headaches has a headache for the past 2 weeks that she has not been able to control with her usual medications. She comes into the emergency department today with severe headache and hypertension. My primary concern with the level of hypertension was for a hypertensive bleed and she was taken to CAT scan shortly after arrival. This did demonstrate some concern for a tiny paracentral focus of hyperattenuation along the falx. This was more likely calcification. We will repeat CAT scan. Patient was faint found to be dehydrated on interrogation the inferior vena cava and the remainder of her blood work was otherwise were unremarkable with the exception of an elevated blood sugar. She is up to the go to the bathroom several times during the visit here. We initiated a migraine rescue with a liter of saline, 10 mg of dexamethasone, 10 mg of Compazine, 25 mg of Benadryl and 30 mg of Toradol The patient has near complete resolution of her headache and the CT scan repeat shows a normal- appearing head. Departure - Departure Disposition: 01 Home, Self Care Clinical Impression: Migraine Qualifiers: Migraine type: chronic without aura Status migrainosus presence: with status migrainosus Intractability: not intractable Qualified Code(s): G43.701 - Chronic migraine without aura, not intractable, with status migrainosus Condition: Stable Instructions: ED Headache Migraine Follow-Up: Kenzie Mcmullen PA-C [Provider Admit Priv/Credential] - Comments: , today it looks like you have had a migraine that has been persistent and we have given you a migraine rescue which appears to have been successful. If you feel that this migraine is related to adjustment of your medication talk to your primary care doctor about further adjustment.
[2021-10-31 03:09] LABS: BASOPHILS % (AUTO) 0.6 %; EOSINOPHILS # (AUTO) 0.3 10^3/uL (0.0-0.7); EOSINOPHILS % (AUTO) 3.8 %; HCT - HEMATOCRIT 43.1 % (37.0-47.0); HGB - HEMOGLOBIN 14.8 g/dL (12.0-16.0); LYMPHOCYTES # (AUTO) 1.6 10^3/uL (1.5-3.5); LYMPHOCYTES % (AUTO) 22.8 %; MEAN CORPUSCULAR HEMOGLOBIN 30.8 pg (27.0-31.0); MEAN CORPUSCULAR HGB CONC 34.3 g/dL (32.0-36.0); MEAN CORPUSCULAR VOLUME 89.8 fL (81.0-99.0); MEAN PLATELET VOLUME 9.3 fL (7.9-10.8); MONOCYTES # (AUTO) 0.5 10^3/uL (0.0-1.0); MONOCYTES % (AUTO) 7.2 %; NEUTROPHILS # (AUTO) 4.7 10^3/uL (1.5-6.6); NEUTROPHILS % (AUTO) 65.3 %; PLT - PLATELET COUNT 193 10^3/uL (130-450); RED CELL DISTRIBUTION WIDTH 12.7 % (12.0-15.0); WHITE BLOOD COUNT 7.2 x10^3/uL (4.8-10.8)
[2021-10-31 03:16] LABS: BILIRUBIN,URINE NEGATIVE (NEGATIVE); GLUCOSE, URINE (UA) 500 mg/dL (NEGATIVE); KETONES,URINE (UA) NEGATIVE (NEGATIVE); LEUKOCYTE ESTERASE, URINE NEGATIVE (NEGATIVE); NITRITE,URINE NEGATIVE (NEGATIVE); OCCULT BLOOD,URINE NEGATIVE (NEGATIVE); PROTEIN,URINE NEGATIVE (NEGATIVE); UROBILINOGEN,URINE 0.2 (NORMAL) E.U./dL (NORMAL)
[2021-10-31 03:17] LABS: CLARITY,URINE CLEAR (CLEAR)
[2021-10-31 03:22] LABS: ALBUMIN/GLOBULIN RATIO 1.3 (1.0-2.2); BILIRUBIN,TOTAL 0.7 mg/dL (0.2-1.0); CALCIUM 9.2 mg/dL (8.5-10.3); CREATININE 0.9 mg/dL (0.4-1.0); POTASSIUM 3.6 mmol/L (3.5-5.0); TOTAL PROTEIN 7.1 g/dL (6.7-8.2)
[2021-10-31] MEDS ORDERED: KETOROLAC 30 MG/ML VIAL IVP STA ×2 (03:38→06:55)
[2021-10-31] MEDS ORDERED: diphenhydrAMINE INJ 50 MG/ML VIAL IVP STA (03:38)
[2021-10-31] MEDS ORDERED: DEXAMETHASONE 10 MG/ML VIAL IVP STA (03:38)
[2021-10-31] MEDS ORDERED: SODIUM CHLORIDE 0.9% 1,000 ML IV STA (03:38)
[2021-10-31] MEDS ORDERED: PROCHLORPERAZINE 10 MG/2 ML VIAL IVP STA (03:38)
[2021-10-31 07:04] VITALS: BP 163/79
--- NOTE | 2021-10-31 07:34 | CT Report ---
PROCEDURE: HEAD WO INDICATIONS: ich short interval f/u TECHNIQUE: Noncontrast 4.5 mm thick angled axial sections acquired from the foramen magnum to the vertex. For r adiation dose reduction, the following was used: automated exposure control, adjustment of mA and/or kV according to patient size. COMPARISON: 10/31/2021.. FINDINGS: Image quality: Excellent. CSF spaces: Basal cisterns are patent. No extra-axial fluid collections. Ventricles are normal in size and shape. Brain: No midline shift. No intracranial hemorrhage. Small 7 mm partially calcified left parafalcin e extra axial mass is stable compared to the prior exam may represent dural ossification center versu s small meningioma. Hernandez-white matter interface is normal. Skull and face: Calvarium and visualized facial bones are intact, without suspicious lesions. Sinuses: Visualized sinuses and mastoids are clear. IMPRESSION: No acute intracranial disease process. Reviewed by: Ju Ruiz MD, PhD on 10/31/2021 7:33 AM PDT Approved by: Ju Ruiz MD, PhD on 10/31/2021 7:33 AM PDT Station ID: [id number]
--- NOTE | 2021-10-31 07:39 | CT Report ---
PROCEDURE: HEAD WO INDICATIONS: hypertensive headache/vomiting TECHNIQUE: Noncontrast 4.5 mm thick angled axial sections acquired from the foramen magnum to the vertex. For r adiation dose reduction, the following was used: automated exposure control, adjustment of mA and/or kV according to patient size. COMPARISON: None. FINDINGS: Image quality: Excellent. CSF spaces: Basal cisterns are patent. No extra-axial fluid collections. Ventricles are normal in size and shape. Brain: No midline shift. No intracranial masses or hemorrhage. Small, approximately 6 mm, partially calcified lesion in the left margin of the falx likely represents small ossification center. Hernandez-wh ite matter interface is normal. Skull and face: Calvarium and visualized facial bones are intact, without suspicious lesions. Sinuses: Visualized sinuses and mastoids are clear. IMPRESSION: No acute intracranial disease process. Reviewed by: Ju Ruiz MD, PhD on 10/31/2021 7:38 AM PDT Approved by: Ju Ruiz MD, PhD on 10/31/2021 7:38 AM PDT Station ID: [id number]
== END 2021-10-31 07:12 | disposition home or self-care (01) ==
LOC: ED 02:02
DX: G43.701 Chronic migraine without aura, not intractable, with status migrainosus (principal); I10 Essential (primary) hypertension; E11.9 Type 2 diabetes mellitus without complications; Z79.899 Other long term (current) drug therapy
CPT/HCPCS: 36415; 70450; 80053; 81003; 83690; 85025; 96361; 96374; 96375; 96376; 99284; 99285; J1200; 81001; 87086

== ENCOUNTER 2021-11-03 05:18 | Outpatient (CLI) | payer MEDICARE, OTHER | END 2021-11-03 05:19 | disposition critical access hospital (66) | LOC: EMS 05:18 | DX: G43.909 Migraine, unspecified, not intractable, without status migrainosus (principal); R11.2 Nausea with vomiting, unspecified; I10 Essential (primary) hypertension | CPT/HCPCS: A0425; A0427 ==

== ENCOUNTER 2021-11-03 05:21 | Emergency (ER) | payer MEDICARE, OTHER ==
[2021-11-03] MEDS ORDERED: SODIUM CHLORIDE 0.9% 1,000 ML IV STA (05:37)
[2021-11-03] MEDS ORDERED: PROCHLORPERAZINE 10 MG/2 ML VIAL IVP STA (05:37)
[2021-11-03] MEDS ORDERED: diphenhydrAMINE INJ 50 MG/ML VIAL IVP STA (05:37)
--- NOTE | 2021-11-03 05:43 | ED Physician Documentation ---
PD HPI HEADACHE - Stated complaint Stated Complaint: HTN, MIGRAINE - Chief complaint Chief Complaint: Neuro - History obtained from History obtained from: Patient - Additional information Additional information: Patient is a 66-year-old female with a history significant for type 2 diabetes, migraines and hypertension with a headache that started last night around 6 PM. Patient did try her usual migraine medication without relief. Pain is behind the eyes and over the front of her head and feels sharp and throbbing. She denies thunderclap in intensity of headache or exertion at time of onset. She has associated nausea, vomiting and photophobia. She noted her blood pressures to be elevated in the 200s. She has been compliant with her blood pressure medications. She has recently been started on a new diabetes medication, Trulicity and feels that her headaches have increased since starting this medication. She was seen in the emergency department 3 days ago with a similar presentation.She had a head CT and medication to treat her headache And was able to be discharged. She denies recent illness. She does recently endorse feeling like her legs are swollen, no current dyspnea or CP. Review of Systems Constitutional: denies: Fever Eyes: reports: Photophobia Nose: denies: Congestion Cardiac: denies: Chest pain / pressure, Palpitations Respiratory: denies: Dyspnea, Cough GI: reports: Nausea, Vomiting. denies: Abdominal Pain : denies: Dysuria Skin: denies: Rash Musculoskeletal: denies: Neck pain, Back pain Neurologic: reports: Headache. denies: Syncope, Head injury PD PAST MEDICAL HISTORY - Past Medical History Cardiovascular: Hypertension, High cholesterol, Deep vein thrombosis, Arrhythmia Respiratory: None Neuro: Migraines Endocrine/Autoimmune: Type 2 diabetes GI: Chronic diarrhea : None HEENT: Chronic vision loss Psych: Depression Musculoskeletal: Chronic back pain - Past Surgical History Past Surgical History: Yes General: Cholecystectomy, Colonoscopy Ortho: Arthroscopic surgery /[employer]: Hysterectomy - Present Medications Home Medications: Ambulatory Orders Medication Instructions Recorded Confirmed Albuterol Sulfate [Proair Hfa 2 puffs IH Q4HR PRN 10/31/21 10/31/21 Inhaler] Cyclobenzaprine [Flexeril] 10 mg PO DAILY PRN 10/31/21 10/31/21 Dulaglutide [Trulicity] 0.5 ml IM 10/31/21 Losartan [Cozaar] 50 mg PO DAILY 10/31/21 10/31/21 Rosuvastatin Calcium [Crestor] 10 mg PO DAILY 10/31/21 10/31/21 HYDROcod/ACETAM 5/325 [[place] 5/325] 1 ea PO Q6H PRN #15 tablet 11/03/21 Losartan Potassium [Cozaar] 100 mg PO DAILY #15 tablet 11/03/21 Promethazine [Phenergan] 25 mg PO Q6H PRN #15 tab 11/03/21 hydroCHLOROthiazide [Hydrodiuril] 25 mg PO DAILY 30 Days #30 tablet 11/03/21 - Allergies Allergies/Adverse Reactions: Allergies Allergy/AdvReac Type Severity Reaction Status Date / Time Penicillins Allergy Severe Rash Verified 11/03/21 05:37 artificial sweeteners AdvReac Intermediate Headache Uncoded 11/03/21 05:37 - Social History Does the pt smoke?: No Smoking Status: Never smoker Does the pt drink ETOH?: No Does the pt have substance abuse?: No - Immunizations Immunizations are current?: Yes - POLST Patient has POLST: No PD ED PE NORMAL - General General: Alert and oriented X 3, Well developed/nourished, Other (Photophobic in a darkened room,Easily conversant) - HEENT HEENT: Atraumatic, PERRL, EOMI - Neck Neck: Supple, no meningeal sign, No bony TTP - Cardiac Cardiac: RRR, Strong equal pulses - Respiratory Respiratory: No respiratory distress, Clear bilaterally - Abdomen Abdomen: Normal bowel sounds, Soft, Non tender, Non distended - Derm Derm: No rash - Extremities Extremities: No deformity, No calf tenderness / cord, Other (Mild symmetric lower extremity edema. 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, No motor deficit, No sensory deficit, Normal speech Eye Opening: Spontaneous Motor: Obeys Commands Verbal: Oriented GCS Score: 15 - Psych Psych: Normal mood, Normal affect Results - Vitals Vitals: Vital Signs - 24 hr 11/03/21 11/03/21 11/03/21 05:24 06:28 07:18 Temperature 36.4 C L Heart Rate 91 86 75 Respiratory 18 20 Rate Blood Pressure 220/114 H 225/110 H 210/93 H O2 Saturation 99 95 11/03/21 11/03/21 11/03/21 07:20 07:25 07:30 Temperature Heart Rate 74 74 75 Respiratory Rate Blood Pressure 195/87 H 178/90 H 168/84 H O2 Saturation 11/03/21 11/03/21 11/03/21 07:45 08:00 08:15 Temperature Heart Rate 73 73 74 Respiratory Rate Blood Pressure 181/83 H 170/81 H 183/86 H O2 Saturation 11/03/21 11/03/21 11/03/21 09:05 09:30 10:00 Temperature Heart Rate 81 74 Respiratory Rate Blood Pressure 168/88 H 161/86 H 166/88 H O2 Saturation 11/03/21 11/03/21 11/03/21 10:30 11:00 11:54 Temperature Heart Rate 70 71 72 Respiratory Rate Blood Pressure 153/72 H 162/73 H 169/86 H O2 Saturation 11/03/21 11/03/21 11/03/21 13:10 14:00 15:30 Temperature Heart Rate 80 86 71 Respiratory 22 20 16 Rate Blood Pressure 186/83 H 188/80 H 180/125 H O2 Saturation 100 97 90 L 11/03/21 11/03/21 15:44 16:13 Temperature Heart Rate 78 93 Respiratory 19 20 Rate Blood Pressure 180/125 H 136/101 H O2 Saturation 97 98 Oxygen O2 Source Room air - EKG (time done) 0559 Rate: Rate (enter#) (88) Rhythm: NSR QRS: Normal Ischemia: No: ST elevation c/w ischemia - Labs Labs: Laboratory Tests 11/03/21 11/03/21 11/03/21 06:41 06:41 06:41 WBC 10.3 RBC 5.39 Hgb 16.6 H Hct 47.7 H MCV 88.5 MCH 30.8 MCHC 34.8 RDW 12.6 Plt Count 212 MPV 10.1 Neut # (Auto) 8.4 H Lymph # (Auto) 1.2 L Riley # (Auto) 0.6 Eos # (Auto) 0.1 Baso # (Auto) 0.0 Absolute Nucleated RBC 0.00 Nucleated RBC % 0.0 Sodium 138 Potassium 3.6 Chloride 97 L Carbon Dioxide 26 Anion Gap 15.0 H BUN 24 H Creatinine 0.9 Estimated GFR (MDRD) 62 L Glucose 290 H Calcium 9.3 Total Bilirubin 1.3 H AST 32 ALT 30 Alkaline Phosphatase 90 Troponin I High Sens 41.3 H* Total Protein 8.2 Albumin 4.6 Globulin 3.6 Albumin/Globulin Ratio 1.3 11/03/21 11/03/21 11/03/21 08:27 11:42 14:46 WBC RBC Hgb Hct MCV MCH MCHC RDW Plt Count MPV Neut # (Auto) Lymph # (Auto) Riley # (Auto) Eos # (Auto) Baso # (Auto) Absolute Nucleated RBC Nucleated RBC % Sodium Potassium Chloride Carbon Dioxide Anion Gap BUN Creatinine Estimated GFR (MDRD) Glucose Calcium Total Bilirubin AST ALT Alkaline Phosphatase Troponin I High Sens 77.0 H* 107.2 H* 99.9 H* Total Protein Albumin Globulin Albumin/Globulin Ratio PD MEDICAL DECISION MAKING - ED course Complexity details: reviewed results, re-evaluated patient, d/w patient, d/w family ED course: Pt with migraine headache and hypertension. BPs consistently above 200. No neuro abnormalities on exam but Head CT obtained to rule out ICH in setting of severely elevated BPs and headache - fortunately negative. Doubt SAH and no meningeal signs. Labs obtained given BP to evaluate for end organ damage. No CP, abdominal or back pain concerning for dissection. No pulmonary edema on exam. Troponin obtained given history of swelling in legs to evaluate for myocardial ischemia as cause. Leg swelling symmetric and doesn't suggest DVT. Troponin in indeterminate range - 2nd troponin pending at time of shift change. BP and Headache improved. 0740 - Pt feeling better, BP and headache improved. 0816 - Pt signed out to Dr. Liang, f/u 2nd troponin. Departure - Departure Clinical Impression: Uncontrolled hypertension, Elevated troponin level, Bilateral leg edema Migraine Qualifiers: Migraine type: without aura Status migrainosus presence: without status migrainosus Intractability: not intractable Qualified Code(s): G43.009 - Migraine without aura, not intractable, without status migrainosus Condition: Stable Instructions: ED Hypertension Conf Out Of Control, ED Headache Migraine Prescriptions: Losartan Potassium [Cozaar] 100 mg PO DAILY #15 tablet hydroCHLOROthiazide [Hydrodiuril] 25 mg PO DAILY 30 Days #30 tablet HYDROcod/ACETAM 5/325 [[place] 5/325] 1 ea PO Q6H PRN #15 tablet PRN Reason: Pain Promethazine [Phenergan] 25 mg PO Q6H PRN #15 tab PRN Reason: Nausea / Vomiting Comments: You were evaluated for a Migraine headache and severely elevated blood pressur es. You had another CT scan of your brain which did not show any bleeding. Did receive medication through your IV to help lower your blood pressure. As your blood pressure readings are still high I do think we can increase your losartan dose to 50 mg twice a day. You can take your regular dose in the morning and another dose in the evening time.Please also follow-up with your primary care provider on Friday to discuss your blood pressure Medication regimen and to schedule a follow-up appointment for recheck. If it anytime your symptoms return or you develop any new symptoms such as chest pain or difficulty breathing please return to the emergency department.
[2021-11-03] MEDS ORDERED: KETOROLAC 30 MG/ML VIAL IVP STA (06:44)
[2021-11-03] MEDS ORDERED: LABETALOL 20 MG/4 ML SYRINGE IVP STA (06:48)
[2021-11-03 07:13] LABS: BASOPHILS % (AUTO) 0.4 %; EOSINOPHILS # (AUTO) 0.1 10^3/uL (0.0-0.7); EOSINOPHILS % (AUTO) 0.7 %; HCT - HEMATOCRIT 47.7 % (37.0-47.0); HGB - HEMOGLOBIN 16.6 g/dL (12.0-16.0); LYMPHOCYTES # (AUTO) 1.2 10^3/uL (1.5-3.5); LYMPHOCYTES % (AUTO) 11.3 %; MEAN CORPUSCULAR HEMOGLOBIN 30.8 pg (27.0-31.0); MEAN CORPUSCULAR HGB CONC 34.8 g/dL (32.0-36.0); MEAN CORPUSCULAR VOLUME 88.5 fL (81.0-99.0); MEAN PLATELET VOLUME 10.1 fL (7.9-10.8); MONOCYTES # (AUTO) 0.6 10^3/uL (0.0-1.0); MONOCYTES % (AUTO) 5.3 %; NEUTROPHILS # (AUTO) 8.4 10^3/uL (1.5-6.6); NEUTROPHILS % (AUTO) 81.9 %; PLT - PLATELET COUNT 212 10^3/uL (130-450); RED BLOOD COUNT 5.39 10^6/uL (4.20-5.40); RED CELL DISTRIBUTION WIDTH 12.6 % (12.0-15.0); WHITE BLOOD COUNT 10.3 x10^3/uL (4.8-10.8)
[2021-11-03 07:14] LABS: ALBUMIN 4.6 g/dL (3.2-5.5); ALBUMIN/GLOBULIN RATIO 1.3 (1.0-2.2); BILIRUBIN,TOTAL 1.3 mg/dL (0.2-1.0); CALCIUM 9.3 mg/dL (8.5-10.3); CREATININE 0.9 mg/dL (0.4-1.0); POTASSIUM 3.6 mmol/L (3.5-5.0); TOTAL PROTEIN 8.2 g/dL (6.7-8.2)
[2021-11-03] MEDS ORDERED: LOSARTAN 50 MG TABLET PO STA ×2 (08:16→15:20)
[2021-11-03] MEDS ORDERED: HYDROmorphone 1 MG/ML CARPUJECT IVP STA (09:34)
--- NOTE | 2021-11-03 10:28 | CT Report ---
PROCEDURE: HEAD WO INDICATIONS: headache/ BP>200 TECHNIQUE: Noncontrast 4.5 mm thick angled axial sections acquired from the foramen magnum to the vertex. For r adiation dose reduction, the following was used: automated exposure control, adjustment of mA and/or kV according to patient size. COMPARISON: To prior examinations on 10/31/2021 FINDINGS: Image quality: Excellent. CSF spaces: Basal cisterns are patent. No extra-axial fluid collections. Ventricles are normal in size and shape. Brain: No midline shift. No intracranial masses or hemorrhage. Hernandez-white matter interface is norm al. Age-appropriate brain parenchymal volume loss and chronic small vessel ischemic change can be se en. Skull and face: Calvarium and visualized facial bones are intact, without suspicious lesions. Sinuses: Visualized sinuses and mastoids are clear. IMPRESSION: Negative for acute intracranial hemorrhage. No significant change from the recent priors. Note: No significant discrepancy from the preliminary report. Reviewed by: Gordon Rebolledo MD on 11/03/2021 9:27 AM [facility] Approved by: Gordon Rebolledo MD on 11/03/2021 9:27 AM [facility]A Station ID: [id number]
[2021-11-03] MEDS ORDERED: ASPIRIN CHEW 81 MG TABLET PO STA (12:57)
[2021-11-03] MEDS ORDERED: CLOPIDOGREL 300 MG TABLET PO STA (12:57)
--- NOTE | 2021-11-03 13:02 | ED Physician Documentation ---
ED Addendum - Addendum Addendum: 11/03/21 12:58 I assumed care of the patient at change of shift. She had been in for a migraine type headache associated with significant hypertension. She had not had any chest pain with this. However she has been having some exertionally related dyspnea and also has noted bilateral lower extremity edema gradually over the last 2 to 3 weeks. Evaluation here had shown an EKG with minimal ST elevation in lead II only which is nonpatterned. There is been a elevation of her troponin at 40. On change of shift we are pending a repeat troponin that had just been drawn. The patient remained with improved blood pressure now 168/100. Heart rate was normal. Still no chest pain. The repeat troponin resulted at approximately 70. The patient had seen Dr. Yao in [place] several years ago for an episode of SVT. I therefore reached out to on-call cardiology at [facility] in [place]. I spoke with Dr. Marr who wanted to see repeated troponin again to see if there is continued rise versus flattening. If continued rise then she should get a more urgent evaluation and stress testing in likely need transferring. If flattening then outpatient treatment could be appropriate which is some stress on the myocardium from the high blood pressure. A third troponin was now at 104 and therefore showing an uptrend. We will contact back with [facility] in [place] if they have beds available or if not seek other facilities. The patient was kept updated at each step along the way. Blood pressure still remains good and no chest pain. The concern at this point is for underlying heart disease or critical stenoses that were precipitated or caused myocardial injury related to the hypertensive urgency. As such we need to better evaluate if there is any signs of ischemic heart disease. Disposition: The patient will be transferred to acute care facility in stable condition. Diagnoses: 1. Acute migraine headache, improved 2. Acute hypertensive urgency 3. Elevated troponin
[2021-11-03] MEDS ORDERED: METOPROLOL TARTRATE 50 MG TABLET PO STA (15:21)
[2021-11-03] MEDS ORDERED: DROPERIDOL 5 MG/2 ML VIAL IVP STA (15:54)
[2021-11-03] MEDS ORDERED: KETOROLAC 15 MG/ML VIAL IVP STA (15:55)
[2021-11-03 16:59] VITALS: BP 183/65
== END 2021-11-03 17:01 | disposition home or self-care (01) ==
LOC: EDUNIT# → ED 05:21
DX: I10 Essential (primary) hypertension (principal); G43.009 Migraine without aura, not intractable, without status migrainosus; R77.8 Other specified abnormalities of plasma proteins; R60.0 Localized edema; E11.9 Type 2 diabetes mellitus without complications; Z79.84 Long term (current) use of oral hypoglycemic drugs; Z20.822 Contact with and (suspected) exposure to COVID-19
CPT/HCPCS: 36415; 70450; 80053; 84484; 85025; 87635; 93005; 96361; 96374; 96375; 96376; 99284; 99285; A9270; J1170; J1200

== ENCOUNTER 2021-11-26 08:03 | Outpatient (CLI) | payer MEDICARE, OTHER ==
[2021-11-26 12:42] LABS: CALCIUM 9.6 mg/dL (8.5-10.3); CREATININE 1.1 mg/dL (0.4-1.0); POTASSIUM 3.3 mmol/L (3.5-5.0)
[2021-11-26 13:16] LABS: ESTIMATED AVERAGE GLUCOSE 214 mg/dL (70-100); HEMOGLOBIN A1c% 9.1 % (4.27-6.07)
== END 2021-11-26 08:04 | disposition home or self-care (01) ==
LOC: LAB.N 08:03
PROVIDERS: ATTEND Physician Assistant Medical
DX: E11.9 Type 2 diabetes mellitus without complications (principal)
CPT/HCPCS: 36415; 80048; 83036

== ENCOUNTER 2022-02-05 08:31 | Outpatient (CLI) | payer MEDICARE, OTHER ==
[2022-02-05 13:21] LABS: CALCIUM 9.6 mg/dL (8.5-10.3); POTASSIUM 3.4 mmol/L (3.5-5.0)
[2022-02-05 14:44] LABS: ESTIMATED AVERAGE GLUCOSE 171 mg/dL (70-100); HEMOGLOBIN A1c% 7.6 % (4.27-6.07)
== END 2022-02-05 08:32 | disposition home or self-care (01) ==
LOC: LAB.N 08:31
PROVIDERS: ATTEND Physician Assistant Medical
DX: E11.9 Type 2 diabetes mellitus without complications (principal)
CPT/HCPCS: 36415; 80048; 83036

== ENCOUNTER 2022-05-10 10:05 | Outpatient (CLI) | payer MEDICARE, OTHER ==
[2022-05-10 13:18] LABS: ALBUMIN 4.3 g/dL (3.2-5.5); ALBUMIN/GLOBULIN RATIO 1.3 (1.0-2.2); ALKALINE PHOSPHATASE 73 IU/L (42-121); ALT ALANINE AMINOTRANSFERASE 20 IU/L (10-60); AST ASPARTATE AMINOTRANSFERASE 22 IU/L (10-42); BILIRUBIN,TOTAL 0.9 mg/dL (0.2-1.0); BUN - BLOOD UREA NITROGEN 22 mg/dL (6-20); CALCIUM 9.9 mg/dL (8.5-10.3); CARBON DIOXIDE - CO2 27 mmol/L (21-32); CHLORIDE 105 mmol/L (101-111); CHOL/HDL RATIO 3.5 (<4.4); CHOLESTEROL 163 mg/dL; CREATININE 0.9 mg/dL (0.4-1.0); GFR - MDRD 62 (>89); GLUCOSE 169 mg/dL (70-100); HDL CHOLESTEROL 47 mg/dL; LDL CHOLESTEROL,CALCULATED 77 mg/dL; LDL/HDL RATIO 1.6 (<4.4); POTASSIUM 3.8 mmol/L (3.5-5.0); SODIUM 142 mmol/L (135-145); TOTAL PROTEIN 7.7 g/dL (6.7-8.2); TRIGLYCERIDES 197 mg/dL; VLDL CHOLESTEROL 39 mg/dL
[2022-05-10 13:47] LABS: ESTIMATED AVERAGE GLUCOSE 148 mg/dL (70-100); HEMOGLOBIN A1c% 6.8 % (4.27-6.07)
== END 2022-05-10 10:06 | disposition home or self-care (01) ==
LOC: LAB.N 10:05
PROVIDERS: ATTEND Physician Assistant Medical
DX: E11.9 Type 2 diabetes mellitus without complications (principal)
CPT/HCPCS: 36415; 80053; 80061; 83036; 83721

== ENCOUNTER 2023-03-05 10:08 | Outpatient (CLI) | payer MEDICARE, OTHER ==
--- NOTE | 2023-03-05 10:57 | Sleep Patient Instructions ---
Sleep Center Visit Summary - Patient Visit Information Reason for Visit: Annual Visit for PAP Therapy - Patient Instructions Additional Instructions: You will continue with CPAP therapy with pressure set at 6-8 cmH2O. A supply prescription will be updated with your DME. We encourage you to continue to try to lose weight. Please follow up with the sleep care office in 1 year. - Clinic Information Contact: [facility] [address] [place] [address] [email or web address] T: [phone]
--- NOTE | 2023-03-05 11:01 | SLEEP CARE CONSULTATION ---
Information from patient questionnaire entered by Maggi Robertson. I have reviewed and concur with the information entered by Maggi Robertson. This document represents the service I personally performed and the decisions made by me, Daniela Rainey ARNP. History of Present Illness Service Date and Time: 03/05/2023 1008 Previous diagnosis: Mild, Obstructive Sleep Apnea-Hypopnea Syndrome AHI: 12.5 (in 2009) Reason for follow up: annual (LAST SEEN 01/2022) Equipment type: CPAP (Dreamstation (not a recertified), SD CARD NEEDED) Equipment obtained from: Other ([facility]; getting supplies as needed) Mask style: Nasal pillows Backup mask available: Yes (old mask) Last cushion change: 2 weeks + [facility]: [facility] Type of Sleep Study: Polysomnography HPI additional information: MANDI CABRERA was diagnosed to have mild, AHI 12.5, obstructive sleep apnea- hypopnea syndrome and returned today for CPAP therapy annual follow-up. Sleep Study - Results Type of Sleep Study: Polysomnography Prior sleep studies: Yes [facility] and [facility] CPAP Compliance Data - Data Reviewed with Patient Average duration of nightly device use: 8 hours 30 minutes Compliance rate %: 99.4 (180/180 days used) Current pressure setting (cmH2O): 6-8 Average residual AHI: 0.3 Central apnea: 0 Obstructive apnea: 0.1 Hypopnea: 0.2 Average large leak: 0 secs Subjective Patient concerns: reports: other (headache, frequent but not every morning). denies: aerophagia, mask discomfort, air blowing in eyes, mask leak noise, condensation in mask/hose, nasal congestion, dry mouth, nose, throat, epistaxis Observed to snore while using device: No Current pressure setting perceived as: comfortable On therapy, patient: reports: sleeping better, awakening more refreshed, being more awake and alert during the day, more rested overall. denies: drowsiness while driving Initial [place] Sleepiness Scale score: 8 (in 2009) Current [place] Sleepiness Scale score: 5 (03/05/23) Allergies and Home Medications Known drug allergies: Yes (as listed) Drug allergies reviewed: Yes Home medication list reviewed: Yes (Ubrelvy for migraines) Allergy and home medication list: Allergies Penicillins Allergy (Severe, Verified 03/04/23 11:00) Rash artificial sweeteners Adverse Reaction (Intermediate, Uncoded 03/04/23 11:00) Headache Review of Systems Review of systems same as previous: Yes (no changes) Physical Exam Vital signs obtained and entered by: MAGGI Nj MA Blood Pressure: 128/78 (LEFT ARM) Cuff size: regular Heart Rate: 67 O2 Saturation: 96 Height: 5 ft 6 in Weight: 176 lb 9.6 oz Body Mass Index: 28.5 BMI Classification: Overweight Impression and Plan 1. Obstructive Sleep Apnea-Hypopnea Syndrome, mild, with good treatment compliance and good apnea control. On CPAP therapy, the patient has better sleep quality and is more rested overall. Patient has significant improvement of their sleep apnea and is satisfied with current CPAP therapy. Patient states she is getting headaches but it is not every morning. She does not want to adjust the pressure because she feels it is in a "sweet spot" and is comfortable. She states she occasionally gets dry mouth but this is after taking medication that she knows will cause dry mouth. She is still using her old DreamStation. She states when she is checked on her status with [facility] it still says that it is pending. I encouraged her to call them and gave her a phone number to call to talk to somebody about what they need to replace this device since it has been two years. She voiced understanding and agreement. Patient's apnea severity and rationale for treatment to reduce apnea, improve sleep quality and reduce cardiovascular and cerebrovascular events was reviewed. I also reviewed the benefit of consistent device use of CPAP for hypertension. 2. Overweight, unspecified. Currently patients BMI is 28.5. Obesity increases the risk of apnea, CPAP pressure requirements and overall health risks especially cardiovascular and diabetes. Thus patient is advised to lose weight. * Continue auto CPAP pressure at 6-8 cmH2O * Update supplies * Notify me if snoring with mask or feeling that the pressure is too much or too little * Attempt to lose weight * Call this office if any problems using CPAP * Return for follow up in 1 year, or sooner if concerns arise Counseling Topics: Spare mask, Weight loss health impact Visit Type: In Office Time Spent with Patient (minutes): 20 Provider Statement: I spent 100% of the Face to Face Visit with the patient with greater than 50% spent counseling the patient and coordination of care.
[2023-03-05 11:10] VITALS: BP 128/78; O2SAT 96
== END 2023-03-05 10:09 | disposition home or self-care (01) ==
LOC: SC 10:08
PROVIDERS: ATTEND Nurse Practitioner Family
DX: G47.33 Obstructive sleep apnea (adult) (pediatric) (principal); E66.3 Overweight; Z68.28 Body mass index [BMI] 28.0-28.9, adult
CPT/HCPCS: 99213; G0463; 99212

== ENCOUNTER 2023-08-14 10:55 | Outpatient (CLI) | payer MEDICARE, OTHER ==
--- NOTE | 2023-08-15 11:45 | Mammography Report ---
BILATERAL DIGITAL SCREENING MAMMOGRAM 3D/2D: 08/14/2023 CLINICAL: Routine screening. Comparison is made to exams dated: 02/28/2022 mammogram, 06/30/2020 mammogram, 02/27/2018 mammogram, mammogram - [facility], 09/20/2014 mammogram, and 06/11/2013 mammogram - [facility]. There are scattered areas of fibroglandular density in both breasts (category b / 25%-50% glandular t issue). No significant masses, calcifications, or other findings are seen in either breast. There has been no significant interval change. IMPRESSION: NEGATIVE There is no mammographic evidence of malignancy. A 1 year screening mammogram is recommended. Based on the Tyrer Cuzick model (a risk assessment model) the patient's lifetime risk is 4.8% and her 10 year risk is 3.0%. According to the ACR, ACS, and NCCN guidelines, an annual breast MRI exam charly g with mammogram is recommended if the patients lifetime risk is 20% or greater. This exam was interpreted at Station ID: [id number]. NOTE: For mammograms, a report in lay terms will be sent to the patient. Approximately 15% of breast malignancies will not be visualized mammographically. In the management of a palpable breast mass, a negative mammogram must not discourage biopsy of a clinically suspicious lesion. Electronically Signed By: Deandre farooq/[email or web address]:08/14/2023 11:39:44 letter sent: No_Letter ACR BI-RADS Category 1: Negative 3341F PARENCHYMAL PATTERN: (A) - The breast(s) demonstrate(s) scattered fibroglandular densities. BI-RADS CATEGORY: (1) - 1 Mammogram [id number] 1 year screening LATERALITY: (B)
== END 2023-08-14 10:56 | disposition home or self-care (01) ==
LOC: DI.N 10:55
DX: Z12.31 Encounter for screening mammogram for malignant neoplasm of breast (principal); R92.323 Mammographic fibroglandular density, bilateral breasts

== ENCOUNTER 2023-08-20 09:06 | Outpatient (CLI) | payer MEDICARE, OTHER ==
--- NOTE | 2023-08-20 09:29 | Sleep Patient Instructions ---
Sleep Center Visit Summary - Patient Visit Information Reason for Visit: 5-month follow-up for PAP therapy - Patient Instructions Additional Instructions: You were here for follow up of CPAP therapy. You will be continued on CPAP therapy with pressure at 6-8 cmH2O. We are going to try to update your CPAP. A prescription will be sent to your CPAP supplier and they should reach out to you when they have a machine for you. Please give us a call once you have the machine at home to schedule your compliance visit. You should follow up with sleep care about 1 month after obtaining new device. You may contact us sooner for any questions or concerns. - Clinic Information Contact: [facility] [address] [place] [address] [email or web address] T: [phone]
--- NOTE | 2023-08-20 09:32 | SLEEP CARE CONSULTATION ---
Information from patient questionnaire entered by Maggi Robertson. I have reviewed and concur with the information entered by Maggi Robertson. This document represents the service I personally performed and the decisions made by me, Daniela Rainey ARNP. History of Present Illness Service Date and Time: 08/20/2023 09 Previous diagnosis: Mild, Obstructive Sleep Apnea-Hypopnea Syndrome AHI: 12.5 (in 2009) Reason for follow up: other (5 MONTH F/U NEED NEW MACHINE) Equipment type: CPAP (Dreamstation (not a recertified), SD CARD NEEDED) Equipment obtained from: Other ([facility]; getting supplies as needed) Mask style: Nasal pillows Mask brand: Respironics (Dreamwear) Backup mask available: Yes (old mask) Last cushion change: monthly Prior sleep studies: Yes Year and Where: 2009 - [facility] Type of Sleep Study: Polysomnography HPI additional information: MANDI CABRERA was diagnosed to have mild, AHI 12.5, obstructive sleep apnea- hypopnea syndrome and returned today for CPAP therapy five month follow-up. Sleep Study - Results Type of Sleep Study: Polysomnography Prior sleep studies: Yes Year and Where: 2009 [facility] CPAP Compliance Data - Data Reviewed with Patient Average duration of nightly device use: 8 hours 50 minutes Compliance rate %: 100 (148/148 days used) Current pressure setting (cmH2O): 6-8 Average residual AHI: 0.3 Central apnea: 0 Obstructive apnea: 0.1 Hypopnea: 0.2 Average large leak: 0 secs Subjective Patient concerns: reports: other (headaches during the night, disappears in the morning). denies: aerophagia, mask discomfort, air blowing in eyes, mask leak noise, condensation in mask/hose, nasal congestion, dry mouth, nose, throat, epistaxis Observed to snore while using device: No Current pressure setting perceived as: comfortable On therapy, patient: reports: sleeping better, awakening more refreshed, being more awake and alert during the day, more rested overall. denies: drowsiness while driving Initial [place] Sleepiness Scale score: 8 (in 2009) Current [place] Sleepiness Scale score: 3 (08/20/2023) Allergies and Home Medications Known drug allergies: Yes (as listed) Drug allergies reviewed: Yes Home medication list reviewed: Yes (Carvedilol) Allergy and home medication list: Allergies Penicillins Allergy (Severe, Verified 08/19/23 13:07) Rash artificial sweeteners Adverse Reaction (Intermediate, Uncoded 08/19/23 13:07) Headache Review of Systems Review of systems same as previous: Yes (NO CHANGE) Physical Exam Vital signs obtained and entered by: MAGGI Nj MA Blood Pressure: 160/81 (LEFT ARM) Cuff size: regular Heart Rate: 68 O2 Saturation: 96 Height: 5 ft 6 in Weight: 177 lb Body Mass Index: 28.5 BMI Classification: Overweight Impression and Plan 1. Obstructive Sleep Apnea-Hypopnea Syndrome, mild, with good treatment compliance and good apnea control. On CPAP therapy, the patient has better sleep quality and is more rested overall. She has a Dreamstation that is on the recall and has not been replaced despite her efforts to contact [employer]. She last obtained her device in July 2018. The patients CPAP is over 5 years old and of reasonable use. Thus, the CPAP will be updated. A DWO prescription will be made. Compliance guidelines for new device and follow up discussed. Patient's apnea severity and rationale for treatment to reduce apnea, improve sleep quality and reduce cardiovascular and cerebrovascular events was reviewed. I also reviewed the benefit of consistent device use of CPAP for hypertension. 2. Overweight, unspecified. Currently patients BMI is 28.5. Obesity increases the risk of apnea, CPAP pressure requirements and overall health risks especially cardiovascular and diabetes. Thus patient is advised to lose weight. * Continue auto CPAP pressure at 6-8 cmH2O * Update machine and supplies * Notify me if snoring with mask or feeling that the pressure is too much or too little * Attempt to lose weight * Call this office if any problems using CPAP * Return for follow up one month after new device is obtained, or sooner if concerns arise Counseling Topics: Spare mask, Weight loss health impact Prescriptions: Auto CPAP, Device supplies Follow up with Sleep Care in: other (for compliance visit) Visit Type: In Office Time Spent with Patient (minutes): 20 Provider Statement: I spent 100% of the Face to Face Visit with the patient with greater than 50% spent counseling the patient and coordination of care.
[2023-08-20 09:33] VITALS: BP 160/81; O2SAT 96
== END 2023-08-20 09:07 | disposition home or self-care (01) ==
LOC: SC 09:06
PROVIDERS: ATTEND Nurse Practitioner Family
DX: G47.33 Obstructive sleep apnea (adult) (pediatric) (principal)
CPT/HCPCS: 99213; G0463; 99212

== ENCOUNTER 2023-10-28 07:19 | Day surgery (SDC) | payer MEDICARE, OTHER ==
[2023-10-28] MEDS: LACTATED RINGERS 1,000 ML IV ONE (07:26)
--- NOTE | 2023-10-28 08:09 | ANESTHESIA ---
Pre-Anesthesia VS, & Labs - Diagnosis HX POLYPS - Procedure COLONOSCOPY Vital Signs: Temp Pulse Resp BP Pulse Ox O2 Flow Rate 36.2 C L 62 13 183/83 H 98 10/28/23 07:26 10/28/23 07:26 10/28/23 07:26 10/28/23 07:26 10/28/23 07:26 Height: 5 ft 6 in Weight (kg): 80.4 kg Body Mass Index: 28.5 BMI Classification: Overweight - NPO Last Fluid Intake: 0700 Last Food Intake: >8HR - Is Patient ?: No - Lab Results Current Lab Results: Laboratory Tests 10/28/23 07:45: POC Whole Bld Glucose 158 H Home Medications and Allergies Albuterol Sulfate [Proair Hfa Inhaler] 2 puffs IH Q4HR PRN 10/31/21 Cyclobenzaprine [Flexeril] 10 mg PO DAILY PRN 10/31/21 Dulaglutide [Trulicity] See Rx Instructions .ROUTE .COMPLEX 10/31/21 Rosuvastatin Calcium [Crestor] 10 mg PO DAILY 10/31/21 Furosemide [Lasix] See Rx Instructions .ROUTE .COMPLEX 03/05/23 carvediloL [Coreg] See Rx Instructions .ROUTE .COMPLEX 08/20/23 Allergies/Adverse Reactions: Allergies Allergy/AdvReac Type Severity Reaction Status Date / Time Penicillins Allergy Severe Rash Verified 08/20/23 09:05 losartan AdvReac Headache Verified 10/27/23 12:40 artificial sweeteners AdvReac Intermediate Headache Uncoded 08/20/23 09:05 Anes History & Medical History - Anesthetic History Anesthesia Complications: reports: No previous complications Family history of Anesthesia Complications: Denies - Medical History Cardiovascular: reports: Hypertension, High cholesterol, Arrhythmia (HX PSVT, NO EPISODES IN >1 YEAR, BETTER SINCE ON CARVEDILOL, DENIEWS CP/SOB) Pulmonary: reports: Sleep apnea, CPAP use Gastrointestinal: reports: Chronic diarrhea, Chronic constipation, Cholelithiasis Urinary: reports: None Neuro: reports: Migraines Musculoskeletal: reports: None Endocrine/Autoimmune: reports: Type 2 diabetes Skin: reports: None Smoking Status: Never smoker - Surgical History General: reports: Cholecystectomy, Appendectomy, Colonoscopy Gynecologic: reports: Hysterectomy Orthopedic: reports: Rotator cuff repair, Shoulder arthroplasty Results - EKG Results EKG Comparison: Reviewed EKG (NSR) Exam General: Alert Dental: WNL Mouth Openin Fingerbreadth Neck Mobility: Normal Mallampati classification: II Thyromental Distance: 4-6 cm Plan Anesthesia Type: Total IV Consent for Procedure(s) Verified and Reviewed: Yes Code Status: Attempt Resuscitation ASA classification: 3-Severe systemic disease Is this case an emergency?: No
[2023-10-28] MEDS ORDERED: LIDOCAINE-MPF 2% 5 ML VIAL ONE (08:22)
[2023-10-28] MEDS ORDERED: PROPOFOL 500 MG/50 ML 500 MG/50 ML VIAL ONE (08:22)
[2023-10-28] MEDS: SIMETHICONE *(INFANT SUSP)* 40 MG/0.6 ML BOTTLE PO ONE (09:13)
[2023-10-28] MEDS: LACTATED RINGERS 300 ML IV ONE (09:40)
[2023-10-28 10:19] VITALS: BP 170/76; O2SAT 98
--- NOTE | 2023-10-28 11:23 | ANESTHESIA POST OP EVALUATION ---
Anesthesia Post Eval - Post Anesthesia Eval Vitals: Last Vital Signs Temp 36.1 C L 10/28/23 10:10 Pulse 60 10/28/23 10:10 Resp 16 10/28/23 10:10 BP 170/76 H 10/28/23 10:10 Pulse Ox 98 10/28/23 10:10 O2 Flow Rate CV Function Including HR & BP: Stable Pain Control: Satisfactory Nausea & Vomiting: Negative Mental Status: Baseline Respiratory Status: Airway Patent Hydration Status: Satisfactory Anesthesia Complications: None
== END 2023-10-28 07:20 | disposition home or self-care (01) ==
LOC: SDS 07:19
PROVIDERS: ATTEND Surgery
PROC: 0DBL8ZX Excision of Transverse Colon, Via Natural or Artificial Opening Endoscopic, Diagnostic (ICD-10-PCS; 2023-10-28)
PROC: 0DBN8ZX Excision of Sigmoid Colon, Via Natural or Artificial Opening Endoscopic, Diagnostic (ICD-10-PCS; 2023-10-28)
PROC: 0DBP8ZX Excision of Rectum, Via Natural or Artificial Opening Endoscopic, Diagnostic (ICD-10-PCS; 2023-10-28)
PROC: 0DBM8ZX Excision of Descending Colon, Via Natural or Artificial Opening Endoscopic, Diagnostic (ICD-10-PCS; principal; 2023-10-28 08:30)
DX: D12.4 Benign neoplasm of descending colon (principal); D12.3 Benign neoplasm of transverse colon; D12.5 Benign neoplasm of sigmoid colon; K63.5 Polyp of colon; K62.1 Rectal polyp; G47.33 Obstructive sleep apnea (adult) (pediatric); I12.9 Hypertensive chronic kidney disease with stage 1 through stage 4 chronic kidney disease, or unspecified chronic kidney disease; N18.9 Chronic kidney disease, unspecified; E11.22 Type 2 diabetes mellitus with diabetic chronic kidney disease; Z79.85 Long-term (current) use of injectable non-insulin antidiabetic drugs; Z80.0 Family history of malignant neoplasm of digestive organs
CPT/HCPCS: 45380; 45385; A9270; J7120

== ENCOUNTER 2023-11-04 08:11 | Outpatient (CLI) | payer MEDICARE, OTHER ==
[2023-11-04 12:02] LABS: ESTIMATED AVERAGE GLUCOSE 148 mg/dL (70-100); HEMOGLOBIN A1c% 6.8 % (4.27-6.07)
[2023-11-04 12:15] LABS: ALBUMIN 4.1 g/dL (3.2-5.5); ALBUMIN/GLOBULIN RATIO 1.4 (1.0-2.2); ALKALINE PHOSPHATASE 69 IU/L (42-121); ALT ALANINE AMINOTRANSFERASE 12 IU/L (10-60); AST ASPARTATE AMINOTRANSFERASE 15 IU/L (10-42); BILIRUBIN,TOTAL 0.6 mg/dL (0.2-1.0); BUN - BLOOD UREA NITROGEN 22 mg/dL (6-20); CALCIUM 9.6 mg/dL (8.5-10.3); CARBON DIOXIDE - CO2 31 mmol/L (21-32); CHLORIDE 103 mmol/L (101-111); CHOL/HDL RATIO 4.2 (<4.4); CHOLESTEROL 173 mg/dL; CREATININE 1.1 mg/dL (0.6-1.3); GFR - MDRD 49 (>89); GLUCOSE 151 mg/dL (74-104); HDL CHOLESTEROL 41 mg/dL; LDL CHOLESTEROL,CALCULATED 71 mg/dL; LDL/HDL RATIO 1.7 (<4.4); POTASSIUM 3.8 mmol/L (3.5-4.5); SODIUM 141 mmol/L (135-145); TRIGLYCERIDES 307 mg/dL (48-352); VLDL CHOLESTEROL 61 mg/dL
== END 2023-11-04 08:12 | disposition home or self-care (01) ==
LOC: LAB.N 08:11
PROVIDERS: ATTEND Physician Assistant Medical
DX: E11.9 Type 2 diabetes mellitus without complications (principal)
CPT/HCPCS: 36415; 80053; 80061; 83036; 83721

== ENCOUNTER 2024-02-03 09:04 | Outpatient (CLI) | payer MEDICARE, OTHER ==
[2024-02-03 13:24] LABS: CALCIUM 9.3 mg/dL (8.5-10.3); CREATININE 1.1 mg/dL (0.6-1.3); POTASSIUM 4.2 mmol/L (3.5-4.5)
[2024-02-03 22:08] LABS: ESTIMATED AVERAGE GLUCOSE 180 mg/dL (70-100); HEMOGLOBIN A1c% 7.9 % (4.27-6.07)
== END 2024-02-03 09:05 | disposition home or self-care (01) ==
LOC: LAB.N 09:04
PROVIDERS: ATTEND Physician Assistant Medical
DX: E11.9 Type 2 diabetes mellitus without complications (principal)
CPT/HCPCS: 36415; 80048; 83036

== ENCOUNTER 2024-02-11 11:10 | Outpatient (CLI) | payer MEDICARE, OTHER ==
--- NOTE | 2024-02-11 22:04 | XRAY Report ---
PROCEDURE: Chest 2V INDICATIONS: UPPER RESPIRATORY INFECTION TECHNIQUE: 2 views of the chest were acquired. COMPARISON: 09/28/2021, 09/15/2021 FINDINGS: Surgical changes and devices: None. Lungs and pleura: No pleural effusions or pneumothorax. Lungs are clear. Mediastinum: Mediastinal contours appear normal. Heart size is normal. Bones and chest wall: No suspicious bony lesions. Age-appropriate degenerative changes are seen. O verlying soft tissues appear unremarkable. IMPRESSION: No focal infiltrates are seen. No acute cardiopulmonary process. Reviewed by: Gordon Rebolledo MD on 02/11/2024 9:03 PM [facility] Approved by: Gordon Rebolledo MD on 02/11/2024 9:03 PM [facility] Station ID: [id number]
== END 2024-02-11 11:11 | disposition home or self-care (01) ==
LOC: DI 11:10
PROVIDERS: ATTEND Physician Assistant Medical
DX: J06.9 Acute upper respiratory infection, unspecified (principal)

== ENCOUNTER 2024-02-14 08:00 | Outpatient (CLI) | payer MEDICARE, OTHER | END 2024-02-14 23:59 | disposition home or self-care (01) | LOC: LAB.N 08:00 | PROVIDERS: ATTEND Family Medicine | DX: R30.0 Dysuria (principal) | CPT/HCPCS: 87077; 87086; 87181 ==